=== PATIENT | male | born 1975 | race Caucasian/White ===

== ENCOUNTER 2016-04-01 20:00 | Emergency (ER) | payer OTHER, MEDICAID ==
[~2016-04-01] VITALS: Ht 195.6 cm; Wt 104.3 kg
[2016-04-01 21:18] LABS: Basophils # (auto) 0.1 uL; Eosinophils # (auto) 0.6 uL; Eosinophils % (auto) 6.7 % (0.0-7.0); Hematocrit 45.3 % (41.0-53.0); Hemoglobin 15.1 g/dL (13.5-17.5); Lymphocytes # (auto) 2.5 uL; Lymphocytes % (auto) 28.8 % (10.0-50.0); Mean Corpuscular Hemoglobin 28.7 pg (28.0-32.0); Mean Corpuscular Hgb Conc. 33.4 g/dL (32.0-36.0); Mean Corpuscular Volume 85.9 fL (80.0-100.0); Mean Platelet Volume 8.1 fL (7.4-10.4); Monocytes # (auto) 0.8 uL; Monocytes % (auto) 9.2 % (0.0-12.0); Neutrophils # (auto) 4.7 uL; Neutrophils % (auto) 54.3 % (37.0-80.0); Platelet Count (auto) 327 10^3/uL (140-450); Red Cell Distribution Width 13.7 % (11.6-16.0); White Blood Cell 8.7 10^3/uL (4.4-10.8)
[2016-04-01 21:38] LABS: Urine Bilirubin Negative (Negative); Urine Blood Negative /uL (Negative); Urine Color Yellow (Yellow); Urine Glucose Normal (Normal); Urine Ketone Negative (Negative); Urine Mucus FEW (None Seen); Urine Nitrite Negative (Negative); Urine RBC <1 /hpf (0 - 3); Urine Squamous Epithelial Cell FEW /hpf (<5)
[2016-04-01 21:41] LABS: Albumin 4.1 g/dL (3.4-5.0); BUN/Creatinine Ratio 12.8; Calcium 9.4 mg/dL (8.5-10.1); Potassium 4.1 mmol/L (3.5-5.1)
[2016-04-01 21:51] LABS: Bilirubin, Total 1.1 mg/dL (0.2-1.0); Total Protein 7.8 g/dL (6.4-8.2)
[2016-04-01 22:38] VITALS: BP 113/86
== END 2016-04-02 00:45 | disposition home or self-care (01) ==
LOC: ER 20:07
DX: R53.83 Other fatigue (principal); R53.1 Weakness; Z88.0 Allergy status to penicillin
CPT/HCPCS: 36415; 71020; 80053; 81001; 85025; 87400

== ENCOUNTER 2016-04-19 21:36 | Emergency (ER) | payer MEDICAID, OTHER ==
[~2016-04-19] VITALS: Ht 195.6 cm; Wt 104.3 kg
[2016-04-20 00:30] VITALS: BP 118/76
== END 2016-04-20 01:13 | disposition home or self-care (01) ==
LOC: ER 21:50
DX: S20.212A Contusion of left front wall of thorax, initial encounter (principal); Z88.0 Allergy status to penicillin; X58.XXXA Exposure to other specified factors, initial encounter; Y93.89 Activity, other specified; Y99.8 Other external cause status; Y92.89 Other specified places as the place of occurrence of the external cause
CPT/HCPCS: 71101

== ENCOUNTER 2016-04-25 23:11 | Emergency (ER) | payer MEDICAID ==
[~2016-04-25] VITALS: Ht 195.6 cm; Wt 104.3 kg
[2016-04-25 23:30] VITALS: BP 116/68
== END 2016-04-26 02:01 | disposition home or self-care (01) ==
LOC: ER 23:16
DX: S20.212A Contusion of left front wall of thorax, initial encounter (principal); Z88.0 Allergy status to penicillin; W19.XXXA Unspecified fall, initial encounter; Y93.01 Activity, walking, marching and hiking; Y99.8 Other external cause status; Y92.89 Other specified places as the place of occurrence of the external cause
CPT/HCPCS: 71250

== ENCOUNTER 2016-12-26 12:56 | Emergency (ER) | payer OTHER, MEDICAID ==
[~2016-12-26] VITALS: Ht 195.6 cm; Wt 99.8 kg
[2016-12-26 14:47] LABS: Basophils # (auto) 0.1 uL; Basophils % (auto) 1.4 % (0.0-2.0); Eosinophils # (auto) 0.6 uL; Eosinophils % (auto) 8.6 % (0.0-7.0); Hemoglobin 15.5 g/dL (13.5-17.5); Lymphocytes % (auto) 26.4 % (10.0-50.0); Mean Corpuscular Hemoglobin 29.4 pg (28.0-32.0); Mean Corpuscular Hgb Conc. 33.6 g/dL (32.0-36.0); Mean Corpuscular Volume 87.6 fL (80.0-100.0); Mean Platelet Volume 8.3 fL (6.9-10.8); Monocytes # (auto) 0.5 uL; Monocytes % (auto) 6.7 % (0.0-12.0); Neutrophils # (auto) 4.3 uL; Neutrophils % (auto) 56.9 % (37.0-80.0); Nucleated Red Blood Cells % 0.1 %; Platelet Count (auto) 279 10^3/uL (140-450); Red Cell Distribution Width 13.1 % (11.8-14.3); White Blood Cell 7.5 10^3/uL (4.4-10.8)
[2016-12-26 14:58] LABS: Albumin 4.1 g/dL (3.4-5.0); BUN/Creatinine Ratio 14.3; Calcium 8.8 mg/dL (8.5-10.1); Potassium 4.6 mmol/L (3.5-5.1)
[2016-12-26 15:01] LABS: Bilirubin, Total 1.4 mg/dL (0.2-1.0); Total Protein 7.2 g/dL (6.4-8.2)
[2016-12-26 15:39] VITALS: BP 112/73
== END 2016-12-26 18:47 | disposition left against medical advice (07) ==
LOC: ER 12:56
DX: R10.30 Lower abdominal pain, unspecified (principal); Z53.21 Procedure and treatment not carried out due to patient leaving prior to being seen by health care provider
CPT/HCPCS: 36415; 80053; 85025; 93005

== ENCOUNTER 2017-08-24 12:25 | Observation (INO) | payer OTHER, MEDICAID ==
[~2017-08-24] VITALS: Ht 195.6 cm; Wt 104.3 kg
[2017-08-24 13:45] LABS: Basophils # (auto) 0.1 uL; Basophils % (auto) 2.1 % (0.0-2.0); Eosinophils # (auto) 0.5 uL; Eosinophils % (auto) 7.7 % (0.0-7.0); Hematocrit 42.1 % (41.0-53.0); Hemoglobin 14.3 g/dL (13.5-17.5); Lymphocytes % (auto) 33.8 % (10.0-50.0); Mean Corpuscular Hemoglobin 29.5 pg (28.0-32.0); Mean Corpuscular Volume 86.8 fL (80.0-100.0); Monocytes # (auto) 0.6 uL; Monocytes % (auto) 9.4 % (0.0-12.0); Neutrophils # (auto) 2.8 uL; Nucleated Red Blood Cells % 0.1 %; Platelet Count (auto) 226 10^3/uL (140-450); Red Blood Cells 4.86 10^6/uL (4.5-5.90); Red Cell Distribution Width 12.9 % (11.8-14.3); White Blood Cell 5.9 10^3/uL (4.4-10.8)
[2017-08-24 14:01] LABS: Albumin 4.1 g/dL (3.4-5.0); BUN/Creatinine Ratio 17.6; Bilirubin, Total 1.5 mg/dL (0.2-1.0); Calcium 8.9 mg/dL (8.5-10.1); Potassium 4.4 mmol/L (3.5-5.1); Total Protein 7.5 g/dL (6.4-8.2)
[2017-08-24] MEDS ORDERED: ASPirin 81 mg TAB PO ONE (17:45)
[2017-08-24 18:40] LABS: Magnesium 2.3 mg/dL (1.6-2.6)
[2017-08-24 18:43] LABS: INR 0.95 (0.9-1.15); Partial Thromboplastin Time 27.6 sec (23.78-33.04); Prothrombin Time 10.2 sec (9.27-12.13)
[2017-08-24 20:15] LABS: Urine Bacteria NONE SEEN /hpf (None Seen); Urine Blood Negative /uL (Negative); Urine Specific Gravity 1.015 (1.001-1.035); Urine WBC 1 /hpf (0 - 3)
[2017-08-24 22:30] VITALS: BP 130/80
== END 2017-08-24 22:42 | disposition home or self-care (01) | DRG 313 ==
LOC: ER 12:25 → OVERFLOW 12:26 → ER 22:42
PROVIDERS: ADMIT Family Medicine; ATTEND Family Medicine
DX: R07.89 Other chest pain (principal); F32.9 Major depressive disorder, single episode, unspecified
CPT/HCPCS: 36415; 71046; 80053; 81001; 83735; 84443; 84484; 85025; 85379; 85610; 85730; 93005; 99285; G0378

== ENCOUNTER 2018-02-08 23:03 | Emergency (ER) | payer OTHER, MEDICAID ==
[~2018-02-08] VITALS: Ht 182.9 cm; Wt 93.0 kg
[2018-02-08 23:43] LABS: Basophils # (auto) 0.1 uL; Basophils % (auto) 1.4 % (0.0-2.0); Eosinophils # (auto) 0.6 uL; Eosinophils % (auto) 8.9 % (0.0-7.0); Hematocrit 42.8 % (41.0-53.0); Hemoglobin 14.3 g/dL (13.5-17.5); Lymphocytes # (auto) 2.8 uL; Lymphocytes % (auto) 40.6 % (10.0-50.0); Mean Corpuscular Hemoglobin 29.6 pg (28.0-32.0); Mean Corpuscular Hgb Conc. 33.5 g/dL (32.0-36.0); Mean Corpuscular Volume 88.5 fL (80.0-100.0); Monocytes # (auto) 0.6 uL; Monocytes % (auto) 8.4 % (0.0-12.0); Neutrophils # (auto) 2.8 uL; Neutrophils % (auto) 40.7 % (37.0-80.0); Nucleated Red Blood Cells % 0.1 %; Platelet Count (auto) 273 10^3/uL (140-450); Red Blood Cells 4.83 10^6/uL (4.5-5.90)
[2018-02-08] MEDS ORDERED: ONDANSETRON HCL 4 MG/2 ML VIAL IV ONE (23:45)
[2018-02-08] MEDS ORDERED: MORPHINE SULFATE 4 MG/ML SYR/VIAL IV ONE (23:45)
[2018-02-08 23:52] LABS: Urine Bacteria NONE SEEN /hpf (None Seen); Urine Blood Negative /uL (Negative); Urine Mucus FEW (None Seen); Urine Specific Gravity 1.018 (1.001-1.035); Urine WBC <1 /hpf (0 - 3)
[2018-02-09] LABS: Albumin 4.1 g/dL (3.4-5.0); Amylase 70 U/L (25-115); Anion Gap 8 (5-15); Aspartate Aminotransferase 26 U/L (15-37); BUN/Creatinine Ratio 16.7; Blood Urea Nitrogen 15 mg/dL (7-18); Calcium 8.8 mg/dL (8.5-10.1); Carbon Dioxide 27 mmol/L (21-32); Chloride 103 mmol/L (98-107); GFR African American 120 mL/min; GFR Non-African American 99 mL/min; Glucose 104 mg/dL (74-106); Lipase 148 U/L (73-393); Potassium 4.1 mmol/L (3.5-5.1); Sodium 138 mmol/L (136-145)
[2018-02-09 00:03] LABS: Alanine Aminotransferase 23 U/L (16-61); Alkaline Phosphatase 70 U/L (45-117); Bilirubin, Total 0.9 mg/dL (0.2-1.0); Total Protein 7.5 g/dL (6.4-8.2)
[2018-02-09 01:43] VITALS: BP 111/82
== END 2018-02-09 01:48 | disposition home or self-care (01) ==
LOC: ER 23:14 → EDBD 23:14 → ER 02-09 01:48
DX: I88.0 Nonspecific mesenteric lymphadenitis (principal); Z88.0 Allergy status to penicillin
CPT/HCPCS: 36415; 74176; 80053; 81001; 82150; 83690; 85025; 96374; 96375; 99284; J2270; J2405

== ENCOUNTER 2018-10-11 16:26 | Emergency (ER) | payer OTHER, MEDICAID ==
[~2018-10-11] VITALS: Ht 195.6 cm; Wt 92.5 kg
[2018-10-11 17:12] VITALS: BP 11/73
[2018-10-11] MEDS ORDERED: KETOROLAC TROMETH 60MG/2ML VIAL IM ONE (17:45)
[2018-10-11] MEDS ORDERED: METHOCARBAMOL 500 MG TAB PO ONE (17:45)
== END 2018-10-11 18:07 | disposition home or self-care (01) ==
LOC: ER 16:27
DX: S39.012A Strain of muscle, fascia and tendon of lower back, initial encounter (principal); M51.36 Other intervertebral disc degeneration, lumbar region; Z88.0 Allergy status to penicillin; X50.1XXA Overexertion from prolonged static or awkward postures, initial encounter; Y93.89 Activity, other specified; Y99.8 Other external cause status; Y92.89 Other specified places as the place of occurrence of the external cause
CPT/HCPCS: 72100; 96372; 99283; J1885

== ENCOUNTER 2018-11-05 13:30 | Emergency (ER) | payer OTHER, MEDICAID ==
[~2018-11-05] VITALS: Ht 195.6 cm; Wt 95.3 kg
[2018-11-05 15:13] VITALS: BP 120/78
== END 2018-11-05 16:03 | disposition home or self-care (01) ==
LOC: ER 13:30
DX: S80.12XA Contusion of left lower leg, initial encounter (principal); Z88.0 Allergy status to penicillin; X58.XXXA Exposure to other specified factors, initial encounter; Y93.89 Activity, other specified; Y92.89 Other specified places as the place of occurrence of the external cause; Y99.8 Other external cause status
CPT/HCPCS: 73590

== ENCOUNTER 2018-11-10 10:05 | Emergency (ER) | payer OTHER, MEDICAID ==
[~2018-11-10] VITALS: Ht 195.6 cm; Wt 95.3 kg
[2018-11-10 10:15] VITALS: BP 123/79
[2018-11-10] MEDS ORDERED: KETOROLAC TROMETH 60MG/2ML VIAL IM ONE (13:00)
== END 2018-11-10 13:15 | disposition home or self-care (01) ==
LOC: ER 10:05
DX: S93.402A Sprain of unspecified ligament of left ankle, initial encounter (principal); W20.8XXA Other cause of strike by thrown, projected or falling object, initial encounter; Y93.89 Activity, other specified; Y92.89 Other specified places as the place of occurrence of the external cause; Y99.8 Other external cause status
CPT/HCPCS: 73610; 96372; 99283; J1885

== ENCOUNTER 2018-11-17 13:06 | Emergency (ER) | payer OTHER, MEDICAID ==
[~2018-11-17] VITALS: Ht 195.6 cm; Wt 95.3 kg
[2018-11-17 13:39] VITALS: BP 117/78
== END 2018-11-17 16:17 | disposition home or self-care (01) ==
LOC: ER 13:06
DX: S90.32XA Contusion of left foot, initial encounter (principal); Z88.0 Allergy status to penicillin; W20.8XXA Other cause of strike by thrown, projected or falling object, initial encounter; Y93.89 Activity, other specified; Y92.89 Other specified places as the place of occurrence of the external cause; Y99.8 Other external cause status
CPT/HCPCS: 73630

== ENCOUNTER 2019-04-16 10:57 | Emergency (ER) | payer OTHER, MEDICAID ==
[~2019-04-16] VITALS: Ht 195.6 cm; Wt 90.7 kg
[2019-04-16 11:29] LABS: Urine WBC None Seen /hpf (0 - 3)
[2019-04-16 11:34] LABS: Urine Bacteria NONE SEEN /hpf (None Seen); Urine Blood Negative /uL (Negative); Urine Specific Gravity 1.012 (1.001-1.035)
[2019-04-16 11:34] LABS: Basophils # (auto) 0.1 uL; Basophils % (auto) 1.2 % (0.0-2.0); Eosinophils # (auto) 0.3 uL; Eosinophils % (auto) 6.1 % (0.0-7.0); Hematocrit 43.3 % (41.0-53.0); Hemoglobin 14.6 g/dL (13.5-17.5); Lymphocytes # (auto) 1.7 uL; Lymphocytes % (auto) 32.1 % (10.0-50.0); Mean Corpuscular Hemoglobin 29.5 pg (28.0-32.0); Mean Corpuscular Hgb Conc. 33.6 g/dL (32.0-36.0); Mean Corpuscular Volume 87.8 fL (80.0-100.0); Monocytes # (auto) 0.4 uL; Monocytes % (auto) 7.3 % (0.0-12.0); Neutrophils # (auto) 2.8 uL; Neutrophils % (auto) 53.3 % (37.0-80.0); Nucleated Red Blood Cells % 0.1 %; Platelet Count (auto) 231 10^3/uL (140-450); Red Blood Cells 4.94 10^6/uL (4.5-5.90); Red Cell Distribution Width 13.4 % (11.8-14.3); White Blood Cell 5.3 10^3/uL (4.4-10.8)
[2019-04-16 11:50] LABS: Calcium 8.7 mg/dL (8.5-10.1)
[2019-04-16 11:54] LABS: BUN/Creatinine Ratio 14.5; Bilirubin, Total 1.6 mg/dL (0.2-1.0); Total Protein 7.3 g/dL (6.4-8.2)
[2019-04-16] MEDS ORDERED: KETOROLAC TROMETH 60MG/2ML VIAL IM ONE (12:00)
[2019-04-16 12:13] VITALS: BP 132/87
== END 2019-04-16 13:39 | disposition home or self-care (01) ==
LOC: ER 10:57
DX: S39.011A Strain of muscle, fascia and tendon of abdomen, initial encounter (principal); R19.7 Diarrhea, unspecified; R11.0 Nausea; Z88.0 Allergy status to penicillin; X58.XXXA Exposure to other specified factors, initial encounter; Y93.89 Activity, other specified; Y99.8 Other external cause status; Y92.89 Other specified places as the place of occurrence of the external cause
CPT/HCPCS: 36415; 71046; 74176; 80053; 81001; 83690; 85025; 96372; 99285; J1885

== ENCOUNTER 2019-10-24 13:45 | Emergency (ER) | payer OTHER, MEDICAID ==
[~2019-10-24] VITALS: Ht 195.6 cm; Wt 95.3 kg
[2019-10-24 14:01] VITALS: BP 137/83
[2019-10-24] MEDS ORDERED: FLUORESCEIN SOD 1 MG TEST STRIP EACHEYE ONE (16:15)
[2019-10-24] MEDS ORDERED: TETRACAINE HCL 0.5% OPTH(EYE) SOLN 4ML LEFTEYE ONE (16:15)
[2019-10-24] MEDS ORDERED: FLUORESCEIN SOD 1 MG TEST STRIP ONE (16:27)
[2019-10-24] MEDS ORDERED: FLUORESCEIN SOD 1 MG TEST STRIP LEFTEYE ONE (16:30)
== END 2019-10-24 16:38 | disposition home or self-care (01) ==
LOC: ER 13:45
DX: S05.02XA Injury of conjunctiva and corneal abrasion without foreign body, left eye, initial encounter (principal); Z88.0 Allergy status to penicillin; X58.XXXA Exposure to other specified factors, initial encounter; Y93.89 Activity, other specified; Y92.89 Other specified places as the place of occurrence of the external cause; Y99.8 Other external cause status

== ENCOUNTER 2020-01-07 12:05 | Emergency (ER) | payer OTHER, MEDICAID ==
[~2020-01-07] VITALS: Ht 195.6 cm; Wt 95.3 kg
[2020-01-07 12:49] VITALS: BP 118/75
[2020-01-07] MEDS ORDERED: KETOROLAC TROMETH 60MG/2ML VIAL IM ONE (13:30)
== END 2020-01-07 14:25 | disposition home or self-care (01) ==
LOC: ER 12:05
DX: M54.16 Radiculopathy, lumbar region (principal); Z88.0 Allergy status to penicillin
CPT/HCPCS: 72100; 96372; 99283; J1885

== ENCOUNTER 2021-04-22 16:16 | Emergency (ER) | payer OTHER, MEDICAID ==
[~2021-04-22] VITALS: Ht 195.6 cm; Wt 93.4 kg
[2021-04-22] MEDS ORDERED: SODIUM CHLORIDE 0.9% 1,000 ML IVB ONE (16:45)
[2021-04-22] MEDS ORDERED: KETOROLAC TROMETH 30 MG/ML 1ML VIAL IV ONE (16:45)
[2021-04-22 18:12] LABS: Basophils # (auto) 0.1 10 ^3/uL (0-0.2); Eosinophils # (auto) 0.2 10 ^3/uL (0-0.8); Eosinophils % (auto) 2.6 % (0.0-7.0); Hematocrit 37.9 % (41.0-53.0); Lymphocytes # (auto) 2.1 10 ^3/uL (0.4-5.4); Lymphocytes % (auto) 27.6 % (10.0-50.0); Mean Corpuscular Hemoglobin 29.5 pg (28.0-32.0); Mean Corpuscular Hgb Conc. 34.3 g/dL (32.0-36.0); Mean Corpuscular Volume 85.9 fL (80.0-100.0); Monocytes # (auto) 0.5 10 ^3/uL (0-1.3); Monocytes % (auto) 7.2 % (0.0-12.0); Neutrophils # (auto) 4.6 10 ^3/uL (1.6-8.6); Neutrophils % (auto) 61.6 % (37.0-80.0); Red Blood Cells 4.41 10^6/uL (4.5-5.90); Red Cell Distribution Width 13.1 % (11.8-14.3); White Blood Cell 7.5 10^3/uL (4.4-10.8)
[2021-04-22 18:29] LABS: Albumin 4.1 g/dL (3.4-5.0); Calcium 8.7 mg/dL (8.5-10.1); Potassium 4.1 mmol/L (3.5-5.1)
[2021-04-22 18:42] LABS: BUN/Creatinine Ratio 13.2
[2021-04-22] MEDS ORDERED: TRAM-297 PO (20:59)
[2021-04-22 22:09] LABS: Urine Bacteria NONE SEEN /hpf (None Seen); Urine Blood Negative /uL (Negative); Urine Hyaline Cast FEW /lpf (0 - 2); Urine Mucus FEW (None Seen); Urine Specific Gravity 1.013 (1.001-1.035); Urine WBC <1 /hpf (0 - 3)
[2021-04-22 23:25] VITALS: BP 136/79
== END 2021-04-22 23:33 | disposition home or self-care (01) ==
LOC: ER 16:22
DX: R10.9 Unspecified abdominal pain (principal); M79.18 Myalgia, other site; Z88.0 Allergy status to penicillin
CPT/HCPCS: 36415; 74176; 80053; 81001; 85025; 96361; 96374; 99284; J1885; J7030

== ENCOUNTER 2024-08-24 15:05 | Inpatient (IN) | payer OTHER, MEDICAID ==
[~2024-08-24] VITALS: Ht 195.6 cm; Wt 100.8 kg
[~2024-08-24 15:05] MED LIST: HYDR-4798 PO; TRAM-297 PO
--- NOTE | 2024-08-24 15:28 | ED.PDOC ---
HPI Comments HPI: 48-year-old male presents to the emergency department with a chief complaint of chest pain onset 3 days. For the past 3 days, patient has been experiencing chest pain, palpitations, shortness of breath, dizziness, noticed symptoms worsen with laying down. No other symptoms or modifying factors present at this time. Patient did not take his metoprolol today. Patient is on nitroglycerin p.r.n.. Initial Vitals BP: 122/78 HR: 88 RR: 20 O2 Sat: 97% Past Medical history: depression, a-fib Past Surgical history: lens replacement Medications: metoprolol, Nitro, Omeprazole Social History: Denies Allergies: NKDA HPI: Poor Historian. REVIEW OF SYSTEMS: CONSTITUTIONAL: Denies acute: fever, diaphoresis, chills, HEAD: Denies acute: headache, photophobia Eyes: Denies acute: Double vision, vision loss, eye pain, eye discharge. EARS: Denies acute: tinnitus, hearing loss, ear discharge, ear pain, THROAT: Denies acute: sore throat, swelling, difficulty swallowing , pain with swallowing, change in voice. NECK: Denies acute: neck pain, neck swelling, stiff neck. HEART: Denies acute : LUNGS: Denies acute: wheezing, cough, hemoptysis ABDOMEN: Denies acute: abdominal pain, Nausea, Vomiting, diarrhea, melena , hematemesis, hematochezia SKIN: Denies acute: rash, redness, lesions, itchiness. EXTREMITIES: Denies acute: calf pain, numbness, tingling, weakness, denies pain in extremity. Denies acute: Low back pain. Neuro: Denies acute: focal neurological deficit, motor or sensory focal neurological deficit, tremors, seizure like activity, confusion, dizziness, change in mental status, loss of bowel or bladder function, cauda equina like symptoms. : Denies acute: dysuria, hematuria, flank pain, increase in urinary frequency. PSYCH: Denies acute: hallucination, suicidal ideation, homicidal ideation. PHYSICAL EXAM: General: ----[id number]----acute distress, awake and alert. Head: normocephalic, atraumatic. Neck: supple, trachea is midline, no swelling. Throat: Normal phonation. Eyes:, no erythema, no purulent discharge, no proptosis, no icterus. Heart: regular rate, regular rhythm, no significant murmur appreciated. Lungs: no apparent respiratory distress, Able to speak in full sentences. No wheezing, no rhonchi, no crackles. No stridors Clear to auscultation bilaterally. Abdomen: non tender to palpation, non distended, soft, no guarding, no rebound, + bowel sounds. Neuro: Awake, Alert, oriented to name, self, situation, follows commands GCS=15. Speech is normal. Skin: no petechia, no purpura, no cyanosis, non-pale, not jaundice. Lower extremities: --no - Pitting edema no deformity, no focal swelling, no calf TTP. Makes eye contact. moves all four extremities. Face: no apparent facial droop. Ambulating in the ED independently. ED COURSE: DISCLAIMER: This medical document was created using an electronic medical record system with voice recognition software and computerized dictation system. Although this document has been carefully reviewed, there might still be some phonetic and typographical errors. Occasional wrong-word or "sound-alike" substitutions may have occurred due to the inherent limitations of voice recognition software. These areas are purely typographical due to imperfections of the software programs and do not reflect any compromise in the patient's medical care. Please read the chart carefully and recognize, using context, where these substitutions have occurred. Chief Complaint: Chest Pain Time Seen by MD: 15:15 Primary Care Provider: UNKN Reviewed Notes: Medications, Allergies Allergies: Coded Allergies: Penicillins (Verified Allergy, Unknown, 04/16/19) Home Meds Active Scripts Hydrocodone-Acetaminophen (Hydrocodone Bitartrate/AC 10-325 mg) 1 Tab Tab, 1 TAB PO Q6HPRN PRN, #30 TAB Prov:LAMINE HOSKINS DO 11/01/21 Tramadol Hcl (Ultram) 50 Mg Tab, 1 TAB PO Q6HR, #30 TAB Prov:ARNOLDO ROD MD 04/22/21 Information Source: Patient Mode of Arrival: Ambulatory Severity: Moderate Timing: Days Duration: Since onset Prehospital treatment: None Location: Chest (L) Radiation: No Radiation Quality: Pressure Onset: At Rest Cardiac Risk Factors: None PE Risk Factors: None History of: None Modifying Factors: Nothing Associated Signs and Symptoms: SOB, Palpitations Past Medical History PAST MEDICAL HISTORY: AFIB, Depression Surgical History (Other): lens replacement Family History Family History: No family hx of Cancer, No family hx of DM, No family hx of Heart etelvina, No family hx of HTN, No family hx ofKidney etelvina, No family hx of Liver etelvina, No family hx of Lung etelvina, No family hx of Stroke Social History Smoker: Non-Smoker Alcohol: Occasionally Drugs: Denies Drug Use Lives In: Home Was a procedure done? Was a procedure done?: No CP Differential Dx Differential Diagnosis: N/A Differential Diagnosis: Other (Ddx include but not limitied to gastritis, musculoskeletal pain, radiculopathy, atypical chest pain, dissection, aneurysm, ACS, unstable angina, hiatal hernia, GERD, anxiety, costochondritis, PE, pneumothroax, neoplasm, cardiac ischemia, drug abuse, anemia.) X-Ray, Labs, Meds, VS Vital Signs Date Time Temp Pulse Resp B/P (MAP) Pulse Ox O2 Delivery O2 Flow Rate FiO2 08/24/24 19:38 98.8 54 18 123/74 (90) 100 98.8 08/24/24 18:51 98.8 55 18 130/84 (99) 98 98.8 08/24/24 18:51 130/84 08/24/24 18:15 105/68 08/24/24 18:06 98.6 71 16 105/68 (80) 97 98.6 08/24/24 18:06 71 16 97 Room Air* 0 21 08/24/24 18:05 78 08/24/24 16:08 69 08/24/24 15:48 98.6 88 20 127/75 (92) 97 98.6 08/24/24 15:12 90 Lab Test 08/24/24 18:53 08/24/24 18:35 08/24/24 17:20 08/24/24 15:19 Range/Units Troponin I High Sensitivity 3 L < 3 L < 3 L </=54 ng/L Urine Color Yellow Yellow Urine Clarity Clear Clear Urine pH 5.5 5.0-9.0 Urine Specific [place] 1.023 1.001-1.035 Urine Protein Negative Negative Urine Ketones Negative Negative Urine Blood Negative Negative /uL Urine Nitrite Negative Negative Urine Bilirubin Negative Negative Urine Urobilinogen Normal Negative mg/dL Urine Leukocyte Esterase Negative Negative /uL Urine RBC 1 0 - 3 /hpf Urine Microscopic WBC 2 0-3 /HPF Urine Squamous Epithelial Cells Few <5 /hpf Urine Bacteria None seen None Seen /hpf Urine Hyaline Casts Mod 0 - 2 /lpf Urine Mucus Few None Seen Urine Glucose Normal Normal mg/dL Lactic Acid Level 1.1 2.6 *H 0.4-2.0 mmol/L White Blood Count 7.8 4.4-10.8 10^3/uL Red Blood Count 4.88 4.5-5.90 10^6/uL Hemoglobin 14.6 13.5-17.5 g/dL Hematocrit 42.0 41.0-53.0 % Mean Corpuscular Volume 86.1 80.0-100.0 fL Mean Corpuscular Hemoglobin 29.8 28.0-32.0 pg Mean Corpuscular Hemoglobin Concent 34.6 32.0-36.0 g/dL Red Cell Distribution Width 12.7 11.8-14.3 % Platelet Count 249 140-450 10^3/uL Mean Platelet Volume 8.1 6.9-10.8 fL Neutrophils (%) (Auto) 62.0 37.0-80.0 % Lymphocytes (%) (Auto) 27.1 10.0-50.0 % Monocytes (%) (Auto) 6.7 0.0-12.0 % Eosinophils (%) (Auto) 3.4 0.0-7.0 % Basophils (%) (Auto) 0.8 0.0-2.0 % Neutrophils # (Auto) 4.8 1.6-8.6 10 ^3/uL Lymphocytes # (Auto) 2.1 0.4-5.4 10 ^3/uL Monocytes # (Auto) 0.5 0-1.3 10 ^3/uL Eosinophils # (Auto) 0.3 0-0.8 10 ^3/uL Basophils # (Auto) 0.1 0-0.2 10 ^3/uL Nucleated Red Blood Cells 0.0 % Sodium Level 142 136-145 mmol/L Potassium Level 3.6 3.5-5.1 mmol/L Chloride Level 104 98-107 mmol/L Carbon Dioxide Level 26 20-31 mmol/L Anion Gap 12 5-15 Blood Urea Nitrogen 12 9-23 mg/dL Creatinine 0.97 0.700-1.30 mg/dL Glomerular Filtration Rate Calc 97 >90 mL/min BUN/Creatinine Ratio 12.4 10.0-20.0 Serum Glucose 119 H 74-106 mg/dL Calcium Level 9.6 8.7-10.4 mg/dL Magnesium Level 1.9 1.6-2.6 mg/dL Total Bilirubin 1.5 H 0.2-1.0 mg/dL Aspartate Amino Transferase (AST) 28 <34 U/L Alanine Aminotransferase (ALT) 21 7-40 U/L Alkaline Phosphatase 56 46-116 U/L B-Type Natriuretic Peptide 55.92 0-100 pg/mL Total Protein 7.2 5.7-8.2 g/dL Albumin 4.8 3.2-4.8 g/dL Thyroid Stimulating Hormone (TSH) 1.53 0.55-4.78 uIU/mL Current Medications Medications (Trade) Dose Ordered Sig/Meli Route Start Time Stop Time Status Last Admin Sodium Chloride 1,000 ml @ 1,000 mls/hr Q1H ONCE IV 08/24/24 15:30 08/24/24 16:29 DC 08/24/24 18:25 Aspirin (Ecotrin Enteric Coated Tablet) 325 mg ONCE ONCE PO 08/24/24 15:30 08/24/24 15:31 DC 08/24/24 18:14 Nitroglycerin (Ntrostat Sublingual) 0.4 mg ONCE ONCE SL 08/24/24 15:30 08/24/24 15:31 DC 08/24/24 18:15 Sodium Chloride 1,000 ml @ 1,000 mls/hr Q1H ONCE IV 08/24/24 16:00 08/24/24 16:59 DC 08/24/24 18:33 [place] [id number] Ph: [phone] DIAGNOSTIC IMAGING Diagnostic Imaging Report : [id number] Signed PATIENT: GE BAH ACCT: [id number] UNIT: [id number] : 1975 LOC: ER ROOM / BED: / AGE / SEX: 48 / M ADM STATUS: REG ER SERVICE 6030 ORDERING PHYSICIAN: SHARA HERNANDEZ DO PROCEDURE(s): CXRP - CHEST PORTABLE REASON: cp/sob/dizzy/palpitations ORDER NUMBER(s): [id number], ACCESSION NUMBER(s): [id number] EXAM: XY CHEST PORTABLE HISTORY: cp/sob/dizzy/palpitations COMPARISON: None TECHNIQUE: Portable AP view of the chest was performed. FINDINGS: No pneumothorax, consolidative infiltrates, or pulmonary edema. The heart is not enlarged. There is mild thoracic spondylosis and scoliosis. IMPRESSION: No acute intrathoracic process. ATED BY: JANELL SCHAEFER MD DICTATED DATE/TIME: 08/24/24 154 SIGNED BY: JANELL SCHAEFER MD SIGNED DATE/TIME: 08/24/241545 CC: Time of 1ST Reevaluation: 15:45 Reevaluation 1ST: Unchanged Patient Education/Counseling: Diagnosis, Treatment Family Education/Counseling: No Family Present Comments Patient presented with the above HPI.--chest pain/shortness of breath/palpitation----workup was initiated. patient was found with the above mentioned diagnosis. the following medications were ordered: please refer to order lists of meds and tests obtained by myself Dr. Hernandez. Patient ED course and VS have been stabilized. Patient has been reassessed in the ED and remained in a stable condition. Pertinent incidental findings were discussed with the patient and/or family. Patient/family voices understanding and is agreeable with plan. Patient has been observed in the ED adequate length of time to insure improvement/stability. Escalation of care considered: Consideration of escalation to observation or admission Patient was ADMITTED to the medicine team for further evaluation and treatment of their presentation. All the reports of any imaging studies that were ordered by myself were reviewed by myself. Departure 1 Departure Time of Disposition: 15:33 Impression: Primary Impression: Chest pain Additional Impressions: Atrial fibrillation with RVR Dyspnea Disposition: ADMITTED INPATIENT Admit to: [facility] Condition: Guarded Discharged With: Self Critical Care Note Critical Care Time?: No Heart Score Heart Score: Heart Score Response (Comments) Value History Moderate Suspicious 1 EKG Normal 0 Age 45-64 1 Risk Factors >3 or Hx ASHD 2 Troponin Normal limit 0 Total 4 I personally scribed for SHARA HERNANDEZ DO ([email or web address]) on 08/24/24 at 15:27. Electronically submitted by Afua Rivera ([email or web address]). I personally scribed for SHARA HERNANDEZ DO ([email or web address]) on 08/24/24 at 16:14. Electronically submitted by Afua Rivera ([email or web address]). I personally scribed for SHARA HERNANDEZ DO ([email or web address]) on 08/24/24 at 16:15. Electronically submitted by Afua Rivera ([email or web address]). SHARA HERNANDEZ DO Aug 24, 2024 15:27
[2024-08-24 15:39] LABS: Basophils # (auto) 0.1 10 ^3/uL (0-0.2); Basophils % (auto) 0.8 % (0.0-2.0); Eosinophils # (auto) 0.3 10 ^3/uL (0-0.8); Eosinophils % (auto) 3.4 % (0.0-7.0); Hemoglobin 14.6 g/dL (13.5-17.5); Lymphocytes # (auto) 2.1 10 ^3/uL (0.4-5.4); Lymphocytes % (auto) 27.1 % (10.0-50.0); Mean Corpuscular Hemoglobin 29.8 pg (28.0-32.0); Mean Corpuscular Hgb Conc. 34.6 g/dL (32.0-36.0); Mean Corpuscular Volume 86.1 fL (80.0-100.0); Monocytes # (auto) 0.5 10 ^3/uL (0-1.3); Monocytes % (auto) 6.7 % (0.0-12.0); Neutrophils # (auto) 4.8 10 ^3/uL (1.6-8.6); Platelet Count (auto) 249 10^3/uL (140-450); Red Blood Cells 4.88 10^6/uL (4.5-5.90); Red Cell Distribution Width 12.7 % (11.8-14.3); White Blood Cell 7.8 10^3/uL (4.4-10.8)
--- NOTE | 2024-08-24 15:49 | DVH ---
EXAM: XY CHEST PORTABLE HISTORY: cp/sob/dizzy/palpitations COMPARISON: None TECHNIQUE: Portable AP view of the chest was performed. FINDINGS: No pneumothorax, consolidative infiltrates, or pulmonary edema. The heart is not enlarged. There is m ild thoracic spondylosis and scoliosis. IMPRESSION: No acute intrathoracic process.
[2024-08-24 15:52] LABS: Alanine Aminotransferase 21 U/L (7-40); Albumin 4.8 g/dL (3.2-4.8); Alkaline Phosphatase 56 U/L (46-116); Anion Gap 12 (5-15); Aspartate Aminotransferase 28 U/L (<34); BUN/Creatinine Ratio 12.4 (10.0-20.0); Blood Urea Nitrogen 12 mg/dL (9-23); Calcium 9.6 mg/dL (8.7-10.4); Carbon Dioxide 26 mmol/L (20-31); Chloride 104 mmol/L (98-107); Glucose 119 mg/dL (74-106); Magnesium 1.9 mg/dL (1.6-2.6); Potassium 3.6 mmol/L (3.5-5.1); Sodium 142 mmol/L (136-145); Total Protein 7.2 g/dL (5.7-8.2)
[2024-08-24 15:54] LABS: Bilirubin, Total 1.5 mg/dL (0.2-1.0)
[2024-08-24 15:58] LABS: Lactic Acid w/Reflex 2.6 mmol/L (0.4-2.0)
[2024-08-24 18:06] VITALS: PULSE 71; RESP 16; O2SAT 97
[2024-08-24] MEDS: ASPirin-EC 325mg tab PO ONE (18:14)
[2024-08-24] MEDS: NITROGLYCERIN 0.4 MG SL TAB SL ONE (18:15)
[2024-08-24] MEDS: SODIUM CHLORIDE 0.9% 1,000 ML IV ONE ×2 (18:25→18:33)
--- NOTE | 2024-08-24 19:18 | ECG ---
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
[2024-08-24 19:44] LABS: Urine Bacteria None Seen /hpf (None Seen)
[2024-08-24 19:55] LABS: Urine Blood Negative /uL (Negative); Urine Clarity Clear (Clear); Urine Color Yellow (Yellow); Urine Hyaline Cast MOD /lpf (0 - 2); Urine Mucus FEW (None Seen); Urine Protein, UAD Negative (Negative); Urine Specific Gravity 1.023 (1.001-1.035); Urine Squamous Epithelial Cell FEW /hpf (<5); Urine Urobilinogen Normal (Negative); Urine WBC 2 /HPF (0-3); Urine pH 5.5 (5.0-9.0)
[2024-08-24] MEDS ORDERED: MORPHINE SULFATE INJ 2 MG/ml SYRG IV PRN (23:30)
[2024-08-24] MEDS ORDERED: NITROGLYCERIN 0.4 MG SL TAB SL PRN (23:30)
[2024-08-25] MEDS ORDERED: NITROGLYCERIN 0.4 MG SL TAB SL PRN (03:15)
[2024-08-25] MEDS: SODIUM CHLORIDE 0.9% 1,000 ML IV ONE (03:38)
--- NOTE | 2024-08-25 04:19 | DVH ---
EXAM: CT HEAD WITHOUT CONTRAST INDICATION: r/o acute stroke TECHNIQUE: CT of the head without intravenous contrast. Radiation Dose : 1. Head: CT Dose: CTDI volume is 56.53 mGy. Dose-length product is 1114.07 mGy*cm The dose indicators for CT are the volume Computed Tomography (CT) Dose Index (CTDIvol) and the Dose Length Product (DLP), and are measured in units of mGy and mGy-cm, respectively. These indicators are not patient dose, but values generated from the CT scanner acquisition factors. The report includes radiation exposure data for exposures received during this examination. COMPARISON: None FINDINGS: There is no evidence of acute intracranial hemorrhage, extra-axial collection, mass effect, midline s hift, herniation or hydrocephalus. The ventricles, sulci and cisterns are age appropriate. The fleming-white differentiation is intact. Minor left maxillary mucosal sinus disease. The remaining visualized paranasal sinuses and mastoid a ir cells are clear. The surrounding soft tissues and osseous structures are unremarkable. IMPRESSION: 1. No acute intracranial abnormality. Radiation optimization: All CT scans at this facility use at least one of these dose optimization carisa hniques: automated exposure control mA and/or kV adjustment per patient size (includes targeted exam s where dose is matched to clinical indication) or iterative reconstruction.
[2024-08-25 04:27] LABS: Amphetamine Screen, Urine Neg (NEGATIVE); Barbiturate Scree,Urine Neg (NEGATIVE); Benzodiazephine Screen, Urine Neg (NEGATIVE); Cannabinoid Screen, Urine Neg (NEGATIVE); Cocaine Screen, Urine Neg (NEGATIVE); Opiate Scree,Urine Neg (NEGATIVE); Phencyclidine Screen, Urine Neg (NEGATIVE)
[2024-08-25 04:33] LABS: COVID19 ANTIGEN SOFIA FIA NEGATIVE (NEGATIVE)
[2024-08-25 04:34] LABS: Rapid Influenza A Negative (Negative); Rapid Influenza B Negative (Negative)
[2024-08-25 05:27] VITALS: BP 118/70; PULSE 54; PULSE 70; RESP 15; RESP 18; O2SAT 98; O2SAT 99
--- NOTE | 2024-08-25 06:27 | DVHHPRES ---
History of Present Illness Resident Creating Document: KIERANBOLARUDOLPHAIDEN RESIDENT History of Present Illness Patient is a 48-year-old male with a past medical history of paroxysmal atrial fibrillation, narcolepsy presented to the ED with a chief complaint of chest pain for the last 2 days. Patient reported substernal to left-sided chest pain with the associated numbness in his hands, palpitations on and off and also reported mild shortness of breath. Patient takes metoprolol succinate 25 mg daily for his atrial fibrillation but is not on any anticoagulation and follows up with primary artist blacksmith and EP artist blacksmith down the [place]. Patient reported he had a stress test about 2 years ago and never had a coronary angiogram done. Patient also reported a with generalized weakness with difficulty moving around and having dizziness, also reported blurred vision for a few minutes 2 days ago which resolved on its own. Past medical history as per HPI Past surgical history: Multiple orthopedic surgeries Social history: Patient denies smoking, alcohol, drug use Home medications: Metoprolol succinate 25 mg daily Review of Systems Review of Systems Patient seen and examined at the bedside Reports of feeling weak, reported chest pain 2/10, no shortness a breath No other acute complaints Allergies: Coded Allergies: Penicillins (Verified Allergy, Unknown, 04/16/19) Medications Current Medications Medications Dose Ordered Sig/Meli Route Start Time Stop Time Status Last Admin Dose Admin Nitroglycerin 0.4 mg Q5MINP PRN SL 08/25/24 03:15 Morphine Sulfate 2 mg Q30M PRN IV 08/25/24 03:15 Aspirin 81 mg DAILY PO 08/25/24 10:00 Exam Vital Signs Vital Signs Date Time Temp Pulse Resp B/P (MAP) Pulse Ox O2 Delivery O2 Flow Rate FiO2 08/25/24 04:00 45 08/25/24 04:00 17 104/53 (70) 98 08/25/24 03:03 98.0 98.0 08/25/24 03:00 Room Air* 0 21 Exam Gen - no pallor, no icterus, no cyanosis, no clubbing, no LAD, no edema . Skin - Patients skin is warm and dry. HEENT - normocephalic, atraumatic, moist mucous membranes. Neck - full ROM, no LAD, no JVD Pulmonary - B/L equal breath sounds, no crackles, no wheezing, no stridor. cardiovascular - regular S1,S2 heard, no added sounds, no murmurs heard. peripheral pulses normal radial 2+, pedal 2+. capillary refill normal <2 secs. GI - soft, nontender abdomen. no hepatospleenomegaly. Bowel sounds normoactive Neurological - Patient is A/O X 3 . Bilateral upper extremity strength 3/5, bilateral lower extremity strength 3/5, no facial droop, normal speech, no tremor, no sensory deficiets. Labs/Xrays Labs Test 08/25/24 03:55 08/24/24 18:53 08/24/24 18:35 08/24/24 17:20 Range/Units Influenza Type A Antigen Negative Negative Influenza Type B Antigen Negative Negative SARS-CoV-2 Antigen (Rapid) Negative NEGATIVE Troponin I High Sensitivity 3 L </=54 ng/L Urine Color Yellow Yellow Urine Clarity Clear Clear Urine pH 5.5 5.0-9.0 Urine Specific [place] 1.023 1.001-1.035 Urine Protein Negative Negative Urine Ketones Negative Negative Urine Blood Negative Negative /uL Urine Nitrite Negative Negative Urine Bilirubin Negative Negative Urine Urobilinogen Normal Negative mg/dL Urine Leukocyte Esterase Negative Negative /uL Urine RBC 1 0 - 3 /hpf Urine Microscopic WBC 2 0-3 /HPF Urine Squamous Epithelial Cells Few <5 /hpf Urine Bacteria None seen None Seen /hpf Urine Hyaline Casts Mod 0 - 2 /lpf Urine Mucus Few None Seen Urine Glucose Normal Normal mg/dL Urine Opiates Screen Neg NEGATIVE Urine Fentanyl Screen Neg NEGATIVE Urine Barbiturates Screen Neg NEGATIVE Urine Phencyclidine Screen Neg NEGATIVE Urine Amphetamines Screen Neg NEGATIVE Urine Benzodiazepines Screen Neg NEGATIVE Urine Cocaine Screen Neg NEGATIVE Urine Cannabinoids Screen Neg NEGATIVE Lactic Acid Level 1.1 0.4-2.0 mmol/L Test 08/24/24 15:19 Range/Units White Blood Count 7.8 4.4-10.8 10^3/uL Red Blood Count 4.88 4.5-5.90 10^6/uL Hemoglobin 14.6 13.5-17.5 g/dL Hematocrit 42.0 41.0-53.0 % Mean Corpuscular Volume 86.1 80.0-100.0 fL Mean Corpuscular Hemoglobin 29.8 28.0-32.0 pg Mean Corpuscular Hemoglobin Concent 34.6 32.0-36.0 g/dL Red Cell Distribution Width 12.7 11.8-14.3 % Platelet Count 249 140-450 10^3/uL Mean Platelet Volume 8.1 6.9-10.8 fL Neutrophils (%) (Auto) 62.0 37.0-80.0 % Lymphocytes (%) (Auto) 27.1 10.0-50.0 % Monocytes (%) (Auto) 6.7 0.0-12.0 % Eosinophils (%) (Auto) 3.4 0.0-7.0 % Basophils (%) (Auto) 0.8 0.0-2.0 % Neutrophils # (Auto) 4.8 1.6-8.6 10 ^3/uL Lymphocytes # (Auto) 2.1 0.4-5.4 10 ^3/uL Monocytes # (Auto) 0.5 0-1.3 10 ^3/uL Eosinophils # (Auto) 0.3 0-0.8 10 ^3/uL Basophils # (Auto) 0.1 0-0.2 10 ^3/uL Nucleated Red Blood Cells 0.0 % Sodium Level 142 136-145 mmol/L Potassium Level 3.6 3.5-5.1 mmol/L Chloride Level 104 98-107 mmol/L Carbon Dioxide Level 26 20-31 mmol/L Anion Gap 12 5-15 Blood Urea Nitrogen 12 9-23 mg/dL Creatinine 0.97 0.700-1.30 mg/dL Glomerular Filtration Rate Calc 97 >90 mL/min BUN/Creatinine Ratio 12.4 10.0-20.0 Serum Glucose 119 H 74-106 mg/dL Calcium Level 9.6 8.7-10.4 mg/dL Magnesium Level 1.9 1.6-2.6 mg/dL Total Bilirubin 1.5 H 0.2-1.0 mg/dL Aspartate Amino Transferase (AST) 28 <34 U/L Alanine Aminotransferase (ALT) 21 7-40 U/L Alkaline Phosphatase 56 46-116 U/L B-Type Natriuretic Peptide 55.92 0-100 pg/mL Total Protein 7.2 5.7-8.2 g/dL Albumin 4.8 3.2-4.8 g/dL Thyroid Stimulating Hormone (TSH) 1.53 0.55-4.78 uIU/mL Assessment/Plan Assessment/Plan Assessment Acute chest pain, rule out ACS paroxysmal atrial fibrillation Probable Tachy-rick syndrome Dehydration Lactic acidosis H/o Narcolepsy Generalized weakness Plan - [id number] Vasc score 0 point - ECG showing sinus rhythm with no acute ST segment or T-wave changes, troponin within normal limits - IV fluids - head CT shows no acute changes - chest x-ray shows no acute changes - on telemetry - on the tele monitor patient was seen to have heart rate fluctuate between 40s and 90s, may need evaluation for tachy-rick syndrome Goals of care discussed with the patient for over 23 minutes. Full code Time spent: 38 mins Plan discussed with Dr. Arnold Plan discussed with: Patient My Orders Orders - AKI ROMO Procedure Category Date Status Time Admit ADMIT 08/25/24 Transmitted 03:12 Nitroglycerin [facility] 08/25/24 In Process Sublingual (Ntrostat 03:15 Morphine Sulfate [facility] 08/25/24 In Process Injection 03:15 Oxygen By Nasal RT 08/25/24 Transmitted Cannula 03:12 Stat Ekg For Chest KATELIN 08/25/24 In Process Pain 03:12 Notify Of Changes [facility] 08/25/24 In Process From Base 03:12 Quill Cleaner For [facility] 08/25/24 In Process 24 Hours 03:12 Emergency Dysrhythmia [facility] 08/25/24 In Process Protocol 03:12 Rhythm Strips Once [facility] 08/25/24 In Process Every Shift 03:12 Echo 2d Mode Cardiac US 08/25/24 Logged DOP 03:[address] 08/25/24 Resulted 03:12 Carotid Duplx W Color US 08/25/24 Logged DOP 03:12 Sodium Chloride 0.9% PHA 08/25/24 In Process 03:15 Complete Blood Count LAB 08/25/24 Logged 06:00 Basic Metabolic Panel LAB 08/25/24 Logged 06:00 Lipid Panel LAB 08/25/24 Logged 06:00 Aspirin Tablet PHA 08/25/24 In Process 10:00 Date of Service: Aug 25, 2024 Billing Provider: ODIN ARNOLD MD Common Visit Codes: 97226-[id number] INP/OBS CARE (HIGH) Secondary Visit Codes: [id number] CARE PLAN 30 MINUTES AKI ROMO RESIDENT Aug 25, 2024 06:27
--- NOTE | 2024-08-25 06:35 | ECG ---
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
--- NOTE | 2024-08-25 06:35 | ECG ---
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
[2024-08-25 06:45] LABS: Potassium 3.9 mmol/L (3.5-5.1); Sodium 144 mmol/L (136-145)
[2024-08-25 06:46] LABS: Anion Gap 9 (5-15); Calcium 9.8 mg/dL (8.7-10.4); Carbon Dioxide 26 mmol/L (20-31)
[2024-08-25 06:51] LABS: BUN/Creatinine Ratio 10.3 (10.0-20.0); Glucose 88 mg/dL (74-106); Triglycerides 122 mg/dL (< 150)
[2024-08-25 06:53] LABS: Cholesterol 195 mg/dL (< 200); HDL Cholesterol 46 mg/dL (40-59)
[2024-08-25 06:54] LABS: Basophils # (auto) 0.1 10 ^3/uL (0-0.2); Basophils % (auto) 0.8 % (0.0-2.0); Eosinophils # (auto) 0.3 10 ^3/uL (0-0.8); Hematocrit 41.5 % (41.0-53.0); Hemoglobin 14.2 g/dL (13.5-17.5); Lymphocytes % (auto) 30.7 % (10.0-50.0); Mean Corpuscular Hemoglobin 29.9 pg (28.0-32.0); Mean Corpuscular Hgb Conc. 34.2 g/dL (32.0-36.0); Mean Corpuscular Volume 87.4 fL (80.0-100.0); Monocytes # (auto) 0.6 10 ^3/uL (0-1.3); Monocytes % (auto) 9.8 % (0.0-12.0); Neutrophils # (auto) 3.4 10 ^3/uL (1.6-8.6); Neutrophils % (auto) 53.7 % (37.0-80.0); Nucleated Red Blood Cells % 0.2 %; Platelet Count (auto) 216 10^3/uL (140-450); Red Blood Cells 4.75 10^6/uL (4.5-5.90); Red Cell Distribution Width 12.8 % (11.8-14.3); White Blood Cell 6.4 10^3/uL (4.4-10.8)
[2024-08-25 06:56] LABS: Blood Urea Nitrogen 8 mg/dL (9-23); Chloride 109 mmol/L (98-107); LDL Cholesterol 139 mg/dL (< 100)
[2024-08-25 08:10] VITALS: RESP 14
[2024-08-25] MEDS: MORPHINE SULFATE INJ 2 MG/ml SYRG IV PRN (08:37)
--- NOTE | 2024-08-25 10:10 | DVH ---
Carotid Duplex Date: 08/25/2024 08:52 AM Clinical History: dizziness, TIA Comparison: None Technique: Duplex doppler evaluation of the extracranial carotid and vertebral arteries including col or doppler and spectral/pulsed waveform analysis was performed. Findings: RIGHT SIDE: The peak systolic velocities are 68 cm/s in the distal CCA and 82 cm/s in the proximal ICA.The ICA/CC A ratio is 1.2. The external carotid artery is patent with peak systolic velocity of 71 cm/s proximally. There is appropriate antegrade flow in the right vertebral artery. LEFT SIDE: The peak systolic velocities are 76 cm/s in the distal CCA and 95 cm/s in the proximal ICA.. The ICA/ CCA ratio is 1.3. The external carotid artery is patent with peak systolic velocity of 93 cm/s proximally. There is appropriate antegrade flow in the left vertebral artery. IMPRESSION: No hemodynamically significant stenosis noted in the right carotid system. No hemodynamically significant stenosis noted in the left carotid system. Reference: Radiology 2003; 229:[id number]
[2024-08-25] MEDS: ASPirin 81 mg TAB PO SCH (11:10)
--- NOTE | 2024-08-25 11:56 | DVHINCON2 ---
Date Seen: Aug 25, [address] Ugarte Reason for Consultation History of paroxysmal AFib, possible tachy-hardik History of Present Illness A 48-year-old male with a medical history of atrial fibrillation, obesity, and obstructive sleep apnea presents to the emergency department with a chief complaint of chest pain that has been ongoing for the past three days. He describes the pain as intermittent, left-sided chest pressure associated with numbness in both hands, palpitations, and mild shortness of breath. He denies radiation of the pain, diaphoresis, nausea, vomiting, or syncope. The patient is currently taking metoprolol succinate 25 mg daily for rate control but eat not on anticoagulation. He follows with his yarn examiner skeins, Dr. Maldonado in [place], and his manager ems, Dr. Romero at [facility], and reports a planned outpatient angiogram. He underwent a stress test two years ago with normal results. A cardiology consult was requested during this visit due to history of paroxysmal AFib and concern for possible tachy-hardik syndrome. The patient denies tobacco, alcohol, or illicit drug use Past Medical History As stated in HPI Past Surgical History Denies Family History Reviewed, non-contributory to the management of this case. Social History The patient lives at home, denies smoking, alcohol or illicit drugs abuse. Allergies: Coded Allergies: Penicillins (Verified Allergy, Unknown, 04/16/19) Home Meds Active Scripts Hydrocodone-Acetaminophen (Hydrocodone Bitartrate/AC 10-325 mg) 1 Tab Tab, 1 TAB PO Q6HPRN PRN, #30 TAB Prov:LAMINE HOSKINS DO 11/01/21 Tramadol Hcl (Ultram) 50 Mg Tab, 1 TAB PO Q6HR, #30 TAB Prov:ARNOLDO ROD MD 04/22/21 Reported Medications Nitroglycerin (Nitrostat) 0.4 Mg Sub, 0.4 MG SL, INJ 08/25/24 Pantoprazole Sodium Sesquihydr (Protonix) 40 Mg Tab, 40 MG PO DAILY, #30 TAB 08/25/24 Metoprolol Succinate (Toprol Xl) 25 Mg Tab, 1 TAB PO DAILY, #30 TAB 5 Refills 08/25/24 Current Medications Current Medications Medications (Trade) Dose Ordered Sig/Meli Route PRN Reason Start Time Stop Time Status Last Admin Nitroglycerin (Ntrostat Sublingual) 0.4 mg Q5MINP PRN SL FOR CHEST PAIN 08/24/24 23:30 08/25/24 00:49 DC Morphine Sulfate 2 mg Q30M PRN IV FOR CHEST PAIN 08/24/24 23:30 08/25/24 00:49 DC Nitroglycerin (Ntrostat Sublingual) 0.4 mg Q5MINP PRN SL FOR CHEST PAIN 08/25/24 03:15 Morphine Sulfate 2 mg Q30M PRN IV FOR CHEST PAIN 08/25/24 03:15 08/25/24 08:37 Aspirin 81 mg DAILY PO 08/25/24 10:00 Review of Systems Constitutional: Denies fever, chills, weight loss, or night sweats, Ears, Nose, & Throat: No symptom reported Eyes: No symptom reported Neurological: No symptoms reported Pulmonary/Respiratory: Positive for mild shortness of breath, denies cough or hemoptysis Cardiovascular: Positive for intermittent chest pain and palpitations. Denies orthopnea, PND, or edema Gastrointestinal: No symptom reported Genitourinary: No symptom reported Musculoskeletal: No symptom reported Skin: No symptom reported Psychiatric: No symptom reported Endocrine: No symptom reported Hemotologic/Lymphatic: No symptom reported Vital Signs Vital Signs Date Time Temp Pulse Resp B/P (MAP) Pulse Ox O2 Delivery O2 Flow Rate FiO2 08/25/24 09:07 67 16 116/75 08/25/24 08:10 Room Air* 0 21 08/25/24 07:25 98.0 100 98.0 Physical Exam INITIAL VITAL SIGNS: Reviewed by me GENERAL: Alert and interactive. No acute distress. HEAD: Head is normocephalic and atraumatic. EYES: EOMI, PERRL. No scleral icterus. No conjunctival injection. ENT: Moist mucous membranes. NECK: Supple, No masses, Full range of motion. RESPIRATORY: No tachypnea. Clear breath sounds bilaterally. No wheezing, rales, rhonchi. CV: Regular rate and rhythm. No murmurs, rubs, or gallops, no JVD GI/: Active bowel sounds, soft, nondistended, nontender. No guarding. No rebound. No masses. No CVA tenderness. INTEGUMENTARY: Warm and dry. No obvious rashes. NEUROLOGIC: Alert and oriented. Face is symmetric. Speech is normal. Moves all extremities equally. Labs/Diagnostic Data Labs Test 08/25/24 05:57 08/25/24 03:55 08/24/24 18:53 08/24/24 18:35 Range/Units White Blood Count 6.4 4.4-10.8 10^3/uL Red Blood Count 4.75 4.5-5.90 10^6/uL Hemoglobin 14.2 13.5-17.5 g/dL Hematocrit 41.5 41.0-53.0 % Mean Corpuscular Volume 87.4 80.0-100.0 fL Mean Corpuscular Hemoglobin 29.9 28.0-32.0 pg Mean Corpuscular Hemoglobin Concent 34.2 32.0-36.0 g/dL Red Cell Distribution Width 12.8 11.8-14.3 % Platelet Count 216 140-450 10^3/uL Mean Platelet Volume 8.3 6.9-10.8 fL Neutrophils (%) (Auto) 53.7 37.0-80.0 % Lymphocytes (%) (Auto) 30.7 10.0-50.0 % Monocytes (%) (Auto) 9.8 0.0-12.0 % Eosinophils (%) (Auto) 5.0 0.0-7.0 % Basophils (%) (Auto) 0.8 0.0-2.0 % Neutrophils # (Auto) 3.4 1.6-8.6 10 ^3/uL Lymphocytes # (Auto) 2.0 0.4-5.4 10 ^3/uL Monocytes # (Auto) 0.6 0-1.3 10 ^3/uL Eosinophils # (Auto) 0.3 0-0.8 10 ^3/uL Basophils # (Auto) 0.1 0-0.2 10 ^3/uL Nucleated Red Blood Cells 0.2 % Sodium Level 144 136-145 mmol/L Potassium Level 3.9 3.5-5.1 mmol/L Chloride Level 109 H 98-107 mmol/L Carbon Dioxide Level 26 20-31 mmol/L Anion Gap 9 5-15 Blood Urea Nitrogen 8 L 9-23 mg/dL Creatinine 0.78 0.700-1.30 mg/dL Glomerular Filtration Rate Calc 111 >90 mL/min BUN/Creatinine Ratio 10.3 10.0-20.0 Serum Glucose 88 74-106 mg/dL Calcium Level 9.8 8.7-10.4 mg/dL Triglycerides Level 122 < 150 mg/dL Cholesterol Level 195 < 200 mg/dL LDL Cholesterol 139 H < 100 mg/dL HDL Cholesterol 46 40-59 mg/dL Influenza Type A Antigen Negative Negative Influenza Type B Antigen Negative Negative SARS-CoV-2 Antigen (Rapid) Negative NEGATIVE Troponin I High Sensitivity 3 L </=54 ng/L Urine Color Yellow Yellow Urine Clarity Clear Clear Urine pH 5.5 5.0-9.0 Urine Specific [place] 1.023 1.001-1.035 Urine Protein Negative Negative Urine Ketones Negative Negative Urine Blood Negative Negative /uL Urine Nitrite Negative Negative Urine Bilirubin Negative Negative Urine Urobilinogen Normal Negative mg/dL Urine Leukocyte Esterase Negative Negative /uL Urine RBC 1 0 - 3 /hpf Urine Microscopic WBC 2 0-3 /HPF Urine Squamous Epithelial Cells Few <5 /hpf Urine Bacteria None seen None Seen /hpf Urine Hyaline Casts Mod 0 - 2 /lpf Urine Mucus Few None Seen Urine Glucose Normal Normal mg/dL Urine Opiates Screen Neg NEGATIVE Urine Fentanyl Screen Neg NEGATIVE Urine Barbiturates Screen Neg NEGATIVE Urine Phencyclidine Screen Neg NEGATIVE Urine Amphetamines Screen Neg NEGATIVE Urine Benzodiazepines Screen Neg NEGATIVE Urine Cocaine Screen Neg NEGATIVE Urine Cannabinoids Screen Neg NEGATIVE Test 08/24/24 17:20 08/24/24 15:19 Range/Units Lactic Acid Level 1.1 0.4-2.0 mmol/L Magnesium Level 1.9 1.6-2.6 mg/dL Total Bilirubin 1.5 H 0.2-1.0 mg/dL Aspartate Amino Transferase (AST) 28 <34 U/L Alanine Aminotransferase (ALT) 21 7-40 U/L Alkaline Phosphatase 56 46-116 U/L B-Type Natriuretic Peptide 55.92 0-100 pg/mL Total Protein 7.2 5.7-8.2 g/dL Albumin 4.8 3.2-4.8 g/dL Thyroid Stimulating Hormone (TSH) 1.53 0.55-4.78 uIU/mL PROCEDURE(s): CXRP - CHEST PORTABLE REASON: cp/sob/dizzy/palpitations ORDER NUMBER(s): [id number], ACCESSION NUMBER(s): [id number] EXAM: XY CHEST PORTABLE HISTORY: cp/sob/dizzy/palpitations COMPARISON: None TECHNIQUE: Portable AP view of the chest was performed. FINDINGS: No pneumothorax, consolidative infiltrates, or pulmonary edema. The heart is not enlarged. There is mild thoracic spondylosis and scoliosis. IMPRESSION: No acute intrathoracic process. Assessment Paroxysmal AFib, possible tachy-hardik syndrome Chest pain to rule out ACS Obstructive sleep apnea Plan/Recommendation (Dr. Kenyon ): 1. Paroxysmal AFib, possible tachy/ Hardik syndrome * Continue metoprolol succinate 25 mg daily for rate control * Chads Vasc score 0 * Magnesium oxide 400 mg b.i.d. * Monitor telemetry for bradyarrhythmias or tachyarrhythmias * Order transthoracic echocardiogram to evaluate cardiac structure and function 2. Chest pain * Serial troponins negative, no acute ischemia noted * Proceed with planned outpatient angiogram per cardiology 3. Electrolyte management * Start magnesium oxide 400 p.o. twice daily * Monitor electrolytes to keep magnesium level of 2.2 and K 4.0 Tentative plan for [facility] with Dr Brianna Kenyon on tuesday08/27/24. Discussed plan with patient and in agreement with [facility]. This medical document was created using an electronic medical record system with voice recognition software and computerized dictation system. Although this document has been carefully reviewed, there might still be some phonetic and typographical errors. Occasional wrong-word or ``sound-alike substitutions may have occurred due to the inherent limitations of voice recognition software. These areas are purely typographical due to imperfections of the software programs and do not reflect any compromise in the patient's medical care. Please read the chart carefully and recognize, using context, where these substitutions have occurred. Plan discussed with: Patient Plan discussed with: Patient NYHA Physical activity limitations: NA Date of Service: Aug 25, 2024 Billing Provider: RANDALL KENYON MD Cardiology Common Codes: CONSULT ONLY Cardiology Consultation Codes: [id number] CONSULT <45MIN [facility] Aug 25, 2024 11:56
[2024-08-25] MEDS ORDERED: NITR0.4S29 SL (12:58)
[2024-08-25] MEDS ORDERED: METO25TA36 PO (12:58)
[2024-08-25] MEDS ORDERED: PANT40TA2 PO (12:58)
[2024-08-25] MEDS: MAGNESIUM SULFATE 1GM/100ML 100 ML IV ONE (13:57)
[2024-08-25] MEDS: METOPROLOL SUCCINATE XL 50 MG TAB PO ONE (14:49)
--- NOTE | 2024-08-25 16:42 | DVHPN2 ---
Subjective Patient denies any chest pain at this time. Reviewed: Care Plan, H&P, Labs, Medications Changes from previous H/P or p: No Changes General: Per HPI Objective Vitals Vital Signs Date Time Temp Pulse Resp B/P (MAP) Pulse Ox O2 Delivery O2 Flow Rate FiO2 08/25/24 14:49 52 114/77 08/25/24 10:00 14 100 08/25/24 09:00 98.3 98.3 08/25/24 08:10 Room Air* 0 21 Intake/Output Intake and Output 08/25/24 07:00 Intake Total 2000 ml Balance 2000 ml Intake IV Total 2000 ml General Appearance: Alert, Oriented X3, Cooperative, No acute distress HEENT: Atraumatic, PERRLA Cardiovascular: Normal S1, Normal S2 Musculoskeletal: Normal sensory function, Normal motor function Skin: Dry, Intact Psych/Mental Status: Mental status NL, Mood NL Medications Current Medications Medications Dose Ordered Sig/Meli Route Start Time Stop Time Status Last Admin Dose Admin Nitroglycerin 0.4 mg Q5MINP PRN SL 08/25/24 03:15 Morphine Sulfate 2 mg Q30M PRN IV 08/25/24 03:15 08/25/24 08:37 2 MG Aspirin 81 mg DAILY PO 08/25/24 10:00 08/25/24 11:10 81 MG Magnesium Oxide 400 mg BID PO 08/25/24 22:00 Metoprolol Succinate 25 mg DAILY PO 08/26/24 10:00 Laboratory Results Laboratory Tests 08/25/24 05:57 Chemistry Test 08/25/24 05:57 Calcium Level 9.8 mg/dL (8.7-10.4) Lipid panel Test 08/25/24 05:57 Cholesterol Level 195 mg/dL (< 200) HDL Cholesterol 46 mg/dL (40-59) Triglycerides Level 122 mg/dL (< 150) Urinalysis Test 08/24/24 18:35 Urine Color Yellow (Yellow) Urine Clarity Clear (Clear) Urine pH 5.5 (5.0-9.0) Urine Specific [place] 1.023 (1.001-1.035) Urine Protein Negative (Negative) Urine Ketones Negative (Negative) Urine Blood Negative /uL (Negative) Urine Nitrite Negative (Negative) Urine Bilirubin Negative (Negative) Urine Urobilinogen Normal mg/dL (Negative) Urine Leukocyte Esterase Negative /uL (Negative) Urine RBC 1 /hpf (0 - 3) Urine Microscopic WBC 2 /HPF (0-3) Urine Squamous Epithelial Cells Few /hpf (<5) Urine Bacteria None seen /hpf (None Seen) Urine Hyaline Casts Mod /lpf (0 - 2) Urine Mucus Few (None Seen) Urine Glucose Normal mg/dL (Normal) Labs and/or images reviewed: Labs reviewed by me, Image(s) reviewed by me Assessment/Plan Assessment/Plan Impression: -chest pain, rule out ACS -paroxysmal atrial fibrillation Plan: -cardiology consultation: Plans for left heart catheterization this Tuesday -continue rate control with beta-gracia therapy -ACS protocol, troponins negative x3 -echocardiogram, pending Total time spent with patient discussing and formulating plan of care: 35 minutes. This medical document was created using an electronic medical record system with [facility] dictation system. Although this document has been carefully reviewed, there may still be some phonetic and typographical errors. These areas are purely typographical due to imperfections of the software programs, and do not reflect any compromise in the patient's medical care. Plan discussed with: Patient, Other (RN) My Orders Orders - CHIKI RIVERA NP Procedure Category Date Status Time Cardiac DIET 08/25/24 Transmitted Diet-2gna,Lofat,Lochol Dinner Date of Service: Aug 25, 2024 Billing Provider: CHIKI RIVERA NP Common Visit Codes: [id number] INP/OBS CARE(HIGH) CHIKI RIVERA NP Aug 25, 2024 16:42
[2024-08-25] MEDS: SODIUM CHLORIDE 0.9% 1,000 ML IV SCH (17:15)
[2024-08-25 18:49] LABS: INR 1.02 (0.9-1.15); Partial Thromboplastin Time 26.2 SEC (24.5-34.5); Prothrombin Time 10.8 sec (9.3-11.8)
--- NOTE | 2024-08-25 18:52 | DVHSR ---
APPROVED REPORT EXAM: Two-dimensional and M-mode echocardiogram with Doppler and color Doppler. Blood Pressure: 122/72 mmHg INDICATION SOB RISK FACTORS Height: 6'5, Weight: 230 DIMENSIONS LVDd4.7 (3.8-5.7cm)LA (2D)4.1 (1.9-4.0cm)Aortic Root3.9 (2.0-3.7cm) LVDs3.6 (2.5-4.0cm)LA (MM) (1.9-4.0cm)Aortic Cusp Exc2.4 (1.5-2.0cm) EF (%) 48.0 (55-70%)Rt. Atrium4.1 (1.9-4.0cm)Asc. Aorta3.4 cm IVSd1.0 (0.7-1.1cm)RV (D)4.8 (1.8-2.4cm) PWd0.9 (0.7-1.1cm) Mitral Valve MitralMitral Stenosis E wave0.68m/sMV Mean GR.mmHg A wave0.53m/sMV Peak GR.mmHg E/A ratio1.32D MVAcm2 DECEL [id number] 1/2 Timems Aortic Valve Aortic ValveAortic Stenosis V10.83m/Edy Mean GR.3mmHg V21.10m/Edy Peak GR.5mmHg LVOT Diameter2.2 (1.8-2.4cm)Doppler AVA2.87cm2 Pulmonic Valve V20.62m/s Tricuspid Valve TR Velocity1.98m/s [id number] Other Information Technically limited study due to body habitus.patient position. Conclusion NORMAL LV EF IS 60% NORMAL VALVES NO EFFUSION NORMAL RV FUNCTION
[2024-08-25 20:00] VITALS: PULSE 62
[2024-08-25 21:00] VITALS: BP 133/78; PULSE 64; RESP 17; TEMP 98.1; O2SAT 99
[2024-08-25] MEDS: MAGNESIUM OXIDE 400 MG TAB PO SCH (23:18)
--- NOTE | 2024-08-25 23:36 | DVHINCON2 ---
Date Seen: Aug 25, [address] Ugarte Reason for Consultation History of paroxysmal AFib, possible tachy-rick History of Present Illness This is a 48-year-old male with a past medical history of atrial fibrillation, obesity, and obstructive sleep apnea who presents to the emergency department with a complaint of chest pain that has been ongoing for the past three days. Patient describes the pain as intermittent, left-sided chest pressure associated with numbness in both hands, palpitations, and mild shortness of breath. He denies radiation of the pain, diaphoresis, nausea, vomiting, or syncope. Patient is currently taking metoprolol succinate 25 mg daily for rate control but eat not on anticoagulation. Patient follows with his nutritional yeast supervisor, Dr. Maldonado in [place], and his rn progressive care, Dr. Romero at [facility], and reports a planned outpatient angiogram. He underwent a stress test two years ago with no rmal results. A cardiology consult was requested during this visit due to history of paroxysmal AFib and concern for possible tachy-rick syndrome. The patient denies tobacco, alcohol, or illicit drug use. Troponin is negative. Chest x-ray showed NAD. Past Medical History As stated in HPI Past Surgical History Denies Family History: Patient reports no known family medical history. Allergies: Coded Allergies: Penicillins (Verified Allergy, Unknown, 04/16/19) Home Meds Active Scripts Hydrocodone-Acetaminophen (Hydrocodone Bitartrate/AC 10-325 mg) 1 Tab Tab, 1 TAB PO Q6HPRN PRN, #30 TAB Prov:LAMINE HOSKINS DO 11/01/21 Tramadol Hcl (Ultram) 50 Mg Tab, 1 TAB PO Q6HR, #30 TAB Prov:ARNOLDO ROD MD 04/22/21 Reported Medications Nitroglycerin (Nitrostat) 0.4 Mg Sub, 0.4 MG SL, INJ 08/25/24 Pantoprazole Sodium Sesquihydr (Protonix) 40 Mg Tab, 40 MG PO DAILY, #30 TAB 08/25/24 Metoprolol Succinate (Toprol Xl) 25 Mg Tab, 1 TAB PO DAILY, #30 TAB 5 Refills 08/25/24 Current Medications Current Medications Medications (Trade) Dose Ordered Sig/Meli Route PRN Reason Start Time Stop Time Status Last Admin Nitroglycerin (Ntrostat Sublingual) 0.4 mg Q5MINP PRN SL FOR CHEST PAIN 08/24/24 23:30 08/25/24 00:49 DC Morphine Sulfate 2 mg Q30M PRN IV FOR CHEST PAIN 08/24/24 23:30 08/25/24 00:49 DC Nitroglycerin (Ntrostat Sublingual) 0.4 mg Q5MINP PRN SL FOR CHEST PAIN 08/25/24 03:15 Morphine Sulfate 2 mg Q30M PRN IV FOR CHEST PAIN 08/25/24 03:15 08/25/24 08:37 Aspirin 81 mg DAILY PO 08/25/24 10:00 08/25/24 11:10 Magnesium Oxide (Mag-Ox Tablet) 400 mg BID PO 08/25/24 22:00 Metoprolol Succinate (Toprol Xl) 25 mg DAILY PO 08/26/24 10:00 Review of Systems Constitutional: Denies fever, chills, weight loss, or night sweats, Ears, Nose, & Throat: No symptom reported Eyes: No symptom reported Neurological: No symptoms reported Pulmonary/Respiratory: Positive for mild shortness of breath, denies cough or hemoptysis Cardiovascular: Positive for intermittent chest pain and palpitations. Denies orthopnea, PND, or edema Gastrointestinal: No symptom reported Genitourinary: No symptom reported Musculoskeletal: No symptom reported Skin: No symptom reported Psychiatric: No symptom reported Endocrine: No symptom reported Hemotologic/Lymphatic: No symptom reported Vital Signs Vital Signs Date Time Temp Pulse Resp B/P (MAP) Pulse Ox O2 Delivery O2 Flow Rate FiO2 08/25/24 10:00 60 14 112/57 (75) 100 08/25/24 09:00 98.3 98.3 08/25/24 08:10 Room Air* 0 21 Physical Exam GENERAL: Alert and oriented x 3. No acute distress. EYES: PERRL, EOMI. Anicteric. HENT: Moist mucous membranes. LUNGS: Clear to auscultation bilaterally. CARDIOVASCULAR: Regular rate and rhythm. ABDOMEN: Soft, nontender and nondistended. EXTREMITIES: No edema. NEUROLOGIC: No focal neurological deficits. SKIN: Warm, dry. Labs/Diagnostic Data Labs Test 08/25/24 05:57 08/25/24 03:55 08/24/24 18:53 08/24/24 18:35 Range/Units White Blood Count 6.4 4.4-10.8 10^3/uL Red Blood Count 4.75 4.5-5.90 10^6/uL Hemoglobin 14.2 13.5-17.5 g/dL Hematocrit 41.5 41.0-53.0 % Mean Corpuscular Volume 87.4 80.0-100.0 fL Mean Corpuscular Hemoglobin 29.9 28.0-32.0 pg Mean Corpuscular Hemoglobin Concent 34.2 32.0-36.0 g/dL Red Cell Distribution Width 12.8 11.8-14.3 % Platelet Count 216 140-450 10^3/uL Mean Platelet Volume 8.3 6.9-10.8 fL Neutrophils (%) (Auto) 53.7 37.0-80.0 % Lymphocytes (%) (Auto) 30.7 10.0-50.0 % Monocytes (%) (Auto) 9.8 0.0-12.0 % Eosinophils (%) (Auto) 5.0 0.0-7.0 % Basophils (%) (Auto) 0.8 0.0-2.0 % Neutrophils # (Auto) 3.4 1.6-8.6 10 ^3/uL Lymphocytes # (Auto) 2.0 0.4-5.4 10 ^3/uL Monocytes # (Auto) 0.6 0-1.3 10 ^3/uL Eosinophils # (Auto) 0.3 0-0.8 10 ^3/uL Basophils # (Auto) 0.1 0-0.2 10 ^3/uL Nucleated Red Blood Cells 0.2 % Sodium Level 144 136-145 mmol/L Potassium Level 3.9 3.5-5.1 mmol/L Chloride Level 109 H 98-107 mmol/L Carbon Dioxide Level 26 20-31 mmol/L Anion Gap 9 5-15 Blood Urea Nitrogen 8 L 9-23 mg/dL Creatinine 0.78 0.700-1.30 mg/dL Glomerular Filtration Rate Calc 111 >90 mL/min BUN/Creatinine Ratio 10.3 10.0-20.0 Serum Glucose 88 74-106 mg/dL Calcium Level 9.8 8.7-10.4 mg/dL Triglycerides Level 122 < 150 mg/dL Cholesterol Level 195 < 200 mg/dL LDL Cholesterol 139 H < 100 mg/dL HDL Cholesterol 46 40-59 mg/dL Influenza Type A Antigen Negative Negative Influenza Type B Antigen Negative Negative SARS-CoV-2 Antigen (Rapid) Negative NEGATIVE Troponin I High Sensitivity 3 L </=54 ng/L Urine Color Yellow Yellow Urine Clarity Clear Clear Urine pH 5.5 5.0-9.0 Urine Specific [place] 1.023 1.001-1.035 Urine Protein Negative Negative Urine Ketones Negative Negative Urine Blood Negative Negative /uL Urine Nitrite Negative Negative Urine Bilirubin Negative Negative Urine Urobilinogen Normal Negative mg/dL Urine Leukocyte Esterase Negative Negative /uL Urine RBC 1 0 - 3 /hpf Urine Microscopic WBC 2 0-3 /HPF Urine Squamous Epithelial Cells Few <5 /hpf Urine Bacteria None seen None Seen /hpf Urine Hyaline Casts Mod 0 - 2 /lpf Urine Mucus Few None Seen Urine Glucose Normal Normal mg/dL Urine Opiates Screen Neg NEGATIVE Urine Fentanyl Screen Neg NEGATIVE Urine Barbiturates Screen Neg NEGATIVE Urine Phencyclidine Screen Neg NEGATIVE Urine Amphetamines Screen Neg NEGATIVE Urine Benzodiazepines Screen Neg NEGATIVE Urine Cocaine Screen Neg NEGATIVE Urine Cannabinoids Screen Neg NEGATIVE Test 08/24/24 17:20 08/24/24 15:19 Range/Units Lactic Acid Level 1.1 0.4-2.0 mmol/L Magnesium Level 1.9 1.6-2.6 mg/dL Total Bilirubin 1.5 H 0.2-1.0 mg/dL Aspartate Amino Transferase (AST) 28 <34 U/L Alanine Aminotransferase (ALT) 21 7-40 U/L Alkaline Phosphatase 56 46-116 U/L B-Type Natriuretic Peptide 55.92 0-100 pg/mL Total Protein 7.2 5.7-8.2 g/dL Albumin 4.8 3.2-4.8 g/dL Thyroid Stimulating Hormone (TSH) 1.53 0.55-4.78 uIU/mL Assessment Paroxysmal AFib, possible tachy-irck syndrome. Chest pain to rule out ACS. Obstructive sleep apnea. Plan/Recommendation I agree with your ongoing assessment and care of plan. Patient has been seen by Meena Garcia NP on my behalf, her and I discussed the plan with the patient. Continue metoprolol succinate 25 mg daily for rate control. Chads Vasc score 0. Magnesium oxide 400 mg b.i.d. Monitor telemetry for bradyarrhythmias or tachyarrhythmias. Order transthoracic echocardiogram to evaluate cardiac structure and function. Outpatient court recording monitor Holter/event monitor. Continue outpatient cardiology and electrophysiology follow-up. Serial troponins negative, no acute ischemia noted. Proceed with planned outpatient angiogram per cardiology. Start magnesium oxide 400 p.o. twice daily . Monitor electrolytes to keep magnesium level of 2.2 and K 4.0. Additional plan as per the hospital course. Plan discussed with: Patient NYHA Physical activity limitations: NA Date of Service: Aug 25, 2024 Billing Provider: RANDALL CLEMONS MD Cardiology Common Codes: [id number] INP/OBS CARE (High) Cardiology Consultation Codes: [id number] CONSULT <60MIN RANDALL CLEMONS MD Aug 25, 2024 14:40
[2024-08-26] VITALS (8 sets, daily range): BP systolic 103–125; BP diastolic 64–78; PULSE 49–97; RESP 16–21; TEMP 96–98.1; O2SAT 98–100
[2024-08-26] MEDS: METOPROLOL SUCCINATE XL 50 MG TAB PO SCH (08:44)
--- NOTE | 2024-08-26 10:42 | DVHPN2 ---
Consult Progress Note Subjective Review of Systems: HEENT:Normal, RESPIRATORY:Normal Other Systems: Complaint of chest pain 2/10 Objective vital signs Vital Sign Date Time Temp Pulse Resp B/P (MAP) Pulse Ox O2 Delivery O2 Flow Rate FiO2 08/26/24 08:44 97 116/81 08/26/24 08:42 96.3 21 98 96.3 08/25/24 20:00 Room Air* 0 21 Total Intake and Output 08/25/24 08/25/24 08/26/24 15:00 23:00 07:00 Intake Total 300 ml 1350 ml Balance 300 ml 1350 ml medications Current Medications Medications Dose Ordered Sig/Meli Route Start Time Stop Time Status Last Admin Dose Admin Nitroglycerin 0.4 mg Q5MINP PRN SL 08/25/24 03:15 Morphine Sulfate 2 mg Q30M PRN IV 08/25/24 03:15 08/25/24 08:37 2 MG Aspirin 81 mg DAILY PO 08/25/24 10:00 08/26/24 08:45 81 MG Magnesium Oxide 400 mg BID PO 08/25/24 22:00 08/26/24 08:44 400 MG Metoprolol Succinate 25 mg DAILY PO 08/26/24 10:00 08/26/24 08:44 25 MG Sodium Chloride 1,000 ml @ 75 mls/hr [id number] IV 08/25/24 17:15 08/25/24 17:15 75 MLS/HR Examination: GENERAL:Normal, LUNGS:Normal, CVS:Abnormal laboratory and microbiology Laboratory Tests 08/25/24 05:57 Test 08/25/24 05:57 Range/Units Serum Glucose 88 74-106 mg/dL Problem List/Assessment/Plan Problem List/Assessment/Plan Paroxysmal AFib, possible tachy-rick syndrome Chest pain to rule out ACS Obstructive sleep apnea Plan/Recommendation (Dr. Clemons ): The patient reports chest pain rated 2/10, troponin is negative and 12 lead EKG shows no significant changes. The patient declined nitroglycerin but accepted morphine, which provided symptom relief. He continues to be monitored under close cardiac surveillance. The patient is scheduled for left heart catheterization tomorrow the plan for left heart catheterization, including its indication, risks, and benefits was discussed with patient. Plan discussed with: Patient, Other (RN) Date of Service: Aug 26, 2024 Billing Provider: RANDALL CLEMONS MD Common Visit Codes: CONSULT ONLY Consultation Codes: [id number] CONSULT <45MIN ADRIEL PIERCE DIRECTOR OF [employer] Aug 26, 2024 10:42
--- NOTE | 2024-08-26 14:16 | DVHPN2 ---
Subjective Patient denies any chest pain at this time. Reviewed: Care Plan, H&P, Labs, Medications Changes from previous H/P or p: No Changes General: Per HPI Objective Vitals Vital Signs Date Time Temp Pulse Resp B/P (MAP) Pulse Ox O2 Delivery O2 Flow Rate FiO2 08/26/24 12:39 96.0 56 17 123/78 (93) 98 96.0 08/25/24 20:00 Room Air* 0 21 Intake/Output Intake and Output 08/26/24 07:00 Intake Total 1650 ml Balance 1650 ml Intake Oral 600 ml IV Total 1050 ml # Voids 1 General Appearance: Alert, Oriented X3, Cooperative, No acute distress HEENT: Atraumatic, PERRLA Cardiovascular: Normal S1, Normal S2 Musculoskeletal: Normal sensory function, Normal motor function Skin: Dry, Intact Psych/Mental Status: Mental status NL, Mood NL Medications Current Medications Medications Dose Ordered Sig/Meli Route Start Time Stop Time Status Last Admin Dose Admin Nitroglycerin 0.4 mg Q5MINP PRN SL 08/25/24 03:15 Morphine Sulfate 2 mg Q30M PRN IV 08/25/24 03:15 08/25/24 08:37 2 MG Aspirin 81 mg DAILY PO 08/25/24 10:00 08/26/24 08:45 81 MG Magnesium Oxide 400 mg BID PO 08/25/24 22:00 08/26/24 08:44 400 MG Metoprolol Succinate 25 mg DAILY PO 08/26/24 10:00 08/26/24 08:44 25 MG Sodium Chloride 1,000 ml @ 75 mls/hr [id number] IV 08/25/24 17:15 08/25/24 17:15 75 MLS/HR Laboratory Results Laboratory Tests 08/25/24 05:57 Coagulation Test 08/25/24 18:22 Prothrombin Time 10.8 sec (9.3-11.8) Prothrombin Time INR 1.02 (0.9-1.15) Activated Partial Thromboplast Time 26.2 SEC (24.5-34.5) Urinalysis Test 08/24/24 18:35 Urine Color Yellow (Yellow) Urine Clarity Clear (Clear) Urine pH 5.5 (5.0-9.0) Urine Specific [place] 1.023 (1.001-1.035) Urine Protein Negative (Negative) Urine Ketones Negative (Negative) Urine Blood Negative /uL (Negative) Urine Nitrite Negative (Negative) Urine Bilirubin Negative (Negative) Urine Urobilinogen Normal mg/dL (Negative) Urine Leukocyte Esterase Negative /uL (Negative) Urine RBC 1 /hpf (0 - 3) Urine Microscopic WBC 2 /HPF (0-3) Urine Squamous Epithelial Cells Few /hpf (<5) Urine Bacteria None seen /hpf (None Seen) Urine Hyaline Casts Mod /lpf (0 - 2) Urine Mucus Few (None Seen) Urine Glucose Normal mg/dL (Normal) Labs and/or images reviewed: Labs reviewed by me, Image(s) reviewed by me Assessment/Plan Assessment/Plan Impression: -chest pain, rule out ACS -paroxysmal atrial fibrillation Plan: Events: Patient denies having any chest pain overnight. Clarified with Cardiology. Plans for left heart catheterization tomorrow. -cardiology consultation: Recommendations reviewed -continue rate control with beta-gracia therapy -ACS protocol, troponins negative x3 -echocardiogram, pending Total time spent with patient discussing and formulating plan of care: 35 minutes. This medical document was created using an electronic medical record system with [employer] dictation system. Although this document has been carefully reviewed, there may still be some phonetic and typographical errors. These areas are purely typographical due to imperfections of the software programs, and do not reflect any compromise in the patient's medical care. Plan discussed with: Patient, Other (RN) My Orders Orders - CHIKI RIVERA NP Procedure Category Date Status Time Cardiac DIET 08/25/24 Transmitted Diet-2gna,Lofat,Lochol Dinner Date of Service: Aug 26, 2024 Billing Provider: CHIKI RIVERA NP Common Visit Codes: [id number] INP/OBS CARE(HIGH) CHIKI RIVERA NP Aug 26, 2024 14:16
--- NOTE | 2024-08-26 23:26 | DVHPN2 ---
Consult Progress Note Subjective Review of Systems: HEENT:Normal, RESPIRATORY:Normal Other Systems: Patient was seen and evaluated in follow up. Patient complains of 2/10 chest pain. Telemetry reviewed. Objective vital signs Vital Sign Date Time Temp Pulse Resp B/P (MAP) Pulse Ox O2 Delivery O2 Flow Rate FiO2 08/26/24 12:39 96.0 56 17 123/78 (93) 98 96.0 08/25/24 20:00 Room Air* 0 21 Total Intake and Output 08/25/24 08/25/24 08/26/24 15:00 23:00 07:00 Intake Total 300 ml 1350 ml Balance 300 ml 1350 ml medications Current Medications Medications Dose Ordered Sig/Meli Route Start Time Stop Time Status Last Admin Dose Admin Nitroglycerin 0.4 mg Q5MINP PRN SL 08/25/24 03:15 Morphine Sulfate 2 mg Q30M PRN IV 08/25/24 03:15 08/25/24 08:37 2 MG Aspirin 81 mg DAILY PO 08/25/24 10:00 08/26/24 08:45 81 MG Magnesium Oxide 400 mg BID PO 08/25/24 22:00 08/26/24 08:44 400 MG Metoprolol Succinate 25 mg DAILY PO 08/26/24 10:00 08/26/24 08:44 25 MG Sodium Chloride 1,000 ml @ 75 mls/hr [id number] IV 08/25/24 17:15 08/25/24 17:15 75 MLS/HR Examination: GENERAL:Normal, HEENT:Normal, NECK:Normal, LUNGS:Normal, CVS:Abnormal, ABDOMEN:Normal, MSK:Normal, SKIN:Normal laboratory and microbiology Laboratory Tests 08/25/24 05:57 Test 08/25/24 05:57 Range/Units Serum Glucose 88 74-106 mg/dL Problem List/Assessment/Plan Problem List/Assessment/Plan Problem List/Assessment/Plan Paroxysmal AFib, possible tachy-rick syndrome. Chest pain to rule out ACS. Obstructive sleep apnea. Plan/Recommendation Continued all current supportive medical care. Patient has been seen by Meena Garcia NP on my behalf, her and I discussed the plan with the patient. The patient reports chest pain rated 2/10, troponin is negative and 12 lead EKG shows no significant changes. The patient declined nitroglycerin but accepted morphine, which provided symptom relief. He continues to be monitored under close cardiac surveillance. The patient is scheduled for left heart catheterization tomorrow the plan for left heart catheterization, including its indication, risks, and benefits was discussed with patient. Additional plan as per the hospital course. Plan discussed with: Patient Date of Service: Aug 26, 2024 Billing Provider: RANDALL CLEMONS MD Cardiology Common Codes: [id number] INP/OBS CARE (High) Cardiology Consultation Codes: [id number] CONSULT <45MIN RANDALL CLEMONS MD Aug 26, 2024 13:22
[2024-08-27] VITALS (11 sets, daily range): BP systolic 108–131; BP diastolic 75–87; PULSE 50–72; RESP 11–18; TEMP 97.4–98.3; O2SAT 96–100
[2024-08-27 05:44] LABS: Alanine Aminotransferase 22 U/L (7-40); Albumin 4.8 g/dL (3.2-4.8); Alkaline Phosphatase 60 U/L (46-116); Anion Gap 10 (5-15); Aspartate Aminotransferase 28 U/L (<34); BUN/Creatinine Ratio 12.9 (10.0-20.0); Blood Urea Nitrogen 11 mg/dL (9-23); Carbon Dioxide 27 mmol/L (20-31); Chloride 105 mmol/L (98-107); Glucose 88 mg/dL (74-106); Potassium 4.1 mmol/L (3.5-5.1); Sodium 142 mmol/L (136-145); Total Protein 7.5 g/dL (5.7-8.2)
[2024-08-27 05:48] LABS: Bilirubin, Total 1.7 mg/dL (0.2-1.0)
[2024-08-27] MEDS: HEPARIN SODIUM (PORCINE) 5000 UNITS/ML 1ML VIAL ONE (07:58)
[2024-08-27] MEDS: ANGIOMAX 250 MG VIAL IV ONE (07:58)
[2024-08-27] MEDS: VERAPAMIL 2.5MG/ML INJ 2ML VIAL IV ONE (07:58)
[2024-08-27] MEDS: LIDOCAINE 2%HCL (LOCAL ANESTH.) INJ 20ML MDV ONE (07:59)
[2024-08-27] MEDS: MIDAZOLAM HCL 2MG/2ML 2ml VIAL (1mg/ml) ONE (07:59)
[2024-08-27] MEDS: fentaNYL CITRATE 100 MCG/2 ML VL ONE (07:59)
[2024-08-27] MEDS: IODIXANOL 320MG/ML 100ML BTL IV ONE (07:59)
[2024-08-27] MEDS: SODIUM CHL 0.9% 0 ML ONE (08:00)
--- NOTE | 2024-08-27 10:26 | DVHOP ---
DATE OF SURGERY: 08/27/2024 TECHNIQUE PERFORMED: * Ultrasound of the right radial artery. * Management of conscious sedation. * Insertion of 6-Serbian arterial line from right radial artery under ultrasound guidance. * Left heart cath. * Left ventriculogram. * [place] selective left and right coronary artery angiography. ASSISTANTS: Assisted by the nurse, Nicole. Other assistants are Hina Seth, and Greg. COMPLICATIONS: None. INDICATIONS: Angina symptoms. Procedure risks and benefits all have been explained. The patient understands very well. DESCRIPTION OF PROCEDURE: In a standard manner, the patient's right radial area thoroughly cleaned with soap and Betadine. Lidocaine was given. 6-Serbian arterial line was placed in the standard manner. The patient got 100 mcg of the nitro, 2000 units of heparin, and 2.5 mg of verapamil. Subsequently, we put a TIG catheter 5-Serbian 4.0 and left coronary angiography was done with the help of similar catheter. We also did right coronary angiography with the help of pigtail catheter. Complete left heart cath also had been done. The left ventriculogram was done in the right anterior oblique view with a total of 10 mL dye. Post LV gram, left ventriculography was performed with the help of pull-through technique. Aortic pressure was also performed. J-wire was passed. Pigtail catheter also had been discontinued and the procedure completed without any complications. IMPRESSION: * Normal left ventricle. * The left anterior artery is a very large artery and is normal. * The diagonal artery is normal. * Circumflex and obtuse marginal artery both are of moderate size and normal. * The patient's right coronary artery is nondominant normal. * Ejection fraction of the left ventricle is 60% normal. CONCLUSION: No evidence of any occlusive coronary artery disease. Ejection fraction 60%. Vince Kenyon MD MP/KAYKAY/AYO/SMOOTH TID: [id number] RECEIPT: [id number] [facility]ITAL[facility]
--- NOTE | 2024-08-27 14:49 | DVHDS2 ---
Discharge Summary Date of Admission Aug 24, 2024 at 23:18 Date of Discharge: Aug 27, 2024 Admitting Diagnosis Chest pain, rule out ACS Labs/Diagnostic Data: Laboratory Results Test 08/27/24 05:00 08/26/24 07:31 08/25/24 18:22 08/25/24 05:57 Sodium Level 142 mmol/L (136-145) Potassium Level 4.1 mmol/L (3.5-5.1) Chloride Level 105 mmol/L (98-107) Carbon Dioxide Level 27 mmol/L (20-31) Anion Gap 10 (5-15) Blood Urea Nitrogen 11 mg/dL (9-23) Creatinine 0.85 mg/dL (0.700-1.30) Glomerular Filtration Rate Calc 108 mL/min (>90) BUN/Creatinine Ratio 12.9 (10.0-20.0) Serum Glucose 88 mg/dL (74-106) Calcium Level 10.0 mg/dL (8.7-10.4) Total Bilirubin 1.7 mg/dL (0.2-1.0) Aspartate Amino Transferase (AST) 28 U/L (<34) Alanine Aminotransferase (ALT) 22 U/L (7-40) Alkaline Phosphatase 60 U/L (46-116) Total Protein 7.5 g/dL (5.7-8.2) Albumin 4.8 g/dL (3.2-4.8) Troponin I High Sensitivity 5 ng/L (</=54) Prothrombin Time 10.8 sec (9.3-11.8) Prothrombin Time INR 1.02 (0.9-1.15) Activated Partial Thromboplast Time 26.2 SEC (24.5-34.5) White Blood Count 6.4 10^3/uL (4.4-10.8) Red Blood Count 4.75 10^6/uL (4.5-5.90) Hemoglobin 14.2 g/dL (13.5-17.5) Hematocrit 41.5 % (41.0-53.0) Mean Corpuscular Volume 87.4 fL (80.0-100.0) Mean Corpuscular Hemoglobin 29.9 pg (28.0-32.0) Mean Corpuscular Hemoglobin Concent 34.2 g/dL (32.0-36.0) Red Cell Distribution Width 12.8 % (11.8-14.3) Platelet Count 216 10^3/uL (140-450) Mean Platelet Volume 8.3 fL (6.9-10.8) Neutrophils (%) (Auto) 53.7 % (37.0-80.0) Lymphocytes (%) (Auto) 30.7 % (10.0-50.0) Monocytes (%) (Auto) 9.8 % (0.0-12.0) Eosinophils (%) (Auto) 5.0 % (0.0-7.0) Basophils (%) (Auto) 0.8 % (0.0-2.0) Neutrophils # (Auto) 3.4 10 ^3/uL (1.6-8.6) Lymphocytes # (Auto) 2.0 10 ^3/uL (0.4-5.4) Monocytes # (Auto) 0.6 10 ^3/uL (0-1.3) Eosinophils # (Auto) 0.3 10 ^3/uL (0-0.8) Basophils # (Auto) 0.1 10 ^3/uL (0-0.2) Nucleated Red Blood Cells 0.2 % Triglycerides Level 122 mg/dL (< 150) Cholesterol Level 195 mg/dL (< 200) LDL Cholesterol 139 mg/dL (< 100) HDL Cholesterol 46 mg/dL (40-59) Test 08/25/24 03:55 08/24/24 18:35 08/24/24 17:20 08/24/24 15:19 Influenza Type A Antigen Negative (Negative) Influenza Type B Antigen Negative (Negative) SARS-CoV-2 Antigen (Rapid) Negative (NEGATIVE) Urine Color Yellow (Yellow) Urine Clarity Clear (Clear) Urine pH 5.5 (5.0-9.0) Urine Specific [place] 1.023 (1.001-1.035) Urine Protein Negative (Negative) Urine Ketones Negative (Negative) Urine Blood Negative /uL (Negative) Urine Nitrite Negative (Negative) Urine Bilirubin Negative (Negative) Urine Urobilinogen Normal mg/dL (Negative) Urine Leukocyte Esterase Negative /uL (Negative) Urine RBC 1 /hpf (0 - 3) Urine Microscopic WBC 2 /HPF (0-3) Urine Squamous Epithelial Cells Few /hpf (<5) Urine Bacteria None seen /hpf (None Seen) Urine Hyaline Casts Mod /lpf (0 - 2) Urine Mucus Few (None Seen) Urine Glucose Normal mg/dL (Normal) Urine Opiates Screen Neg (NEGATIVE) Urine Fentanyl Screen Neg (NEGATIVE) Urine Barbiturates Screen Neg (NEGATIVE) Urine Phencyclidine Screen Neg (NEGATIVE) Urine Amphetamines Screen Neg (NEGATIVE) Urine Benzodiazepines Screen Neg (NEGATIVE) Urine Cocaine Screen Neg (NEGATIVE) Urine Cannabinoids Screen Neg (NEGATIVE) Lactic Acid Level 1.1 mmol/L (0.4-2.0) Magnesium Level 1.9 mg/dL (1.6-2.6) B-Type Natriuretic Peptide 55.92 pg/mL (0-100) Thyroid Stimulating Hormone (TSH) 1.53 uIU/mL (0.55-4.78) Other Laboratory Tests 08/27/24 05:00 08/25/24 05:57 Brief Hx & Hospital Course: History of Present Illness Patient is a 48-year-old male with a past medical history of paroxysmal atrial fibrillation, narcolepsy presented to the ED with a chief complaint of chest pain for the last 2 days. Patient reported substernal to left-sided chest pain with the associated numbness in his hands, palpitations on and off and also reported mild shortness of breath. Patient takes metoprolol succinate 25 mg daily for his atrial fibrillation but is not on any anticoagulation and follows up with primary independent distributor and EP independent distributor down the [place]. Patient reported he had a stress test about 2 years ago and never had a coronary angiogram done. Patient also reported a with generalized weakness with difficulty moving around and having dizziness, also reported blurred vision for a few minutes 2 days ago which resolved on its own. Course of hospitalization: Patient was found to have negative troponins x3. EKG without any acute changes. Cardiology consultation was obtained. Given patient has persistent palpitations chest pain, patient was taken for left heart catheterization today. Patient had normal coronary artery anatomy. No intervention was performed. Reviewing the patient's past 24 hours with of telemetry monitoring, found no periods of atrial fibrillation or other dysrhythmias. Patient was noted to have some bradycardia. The patient was states that he was an appointment with outpatient [facility] [employer] as well as his primary independent distributor in the next 2-3 weeks. Patient will continue his previous home medications including beta-gracia therapy. Questions answered. Physical examination General: Alert and Oriented x3. No acute distress. Well-nourished. Eyes: EOMI. Anicteric. HENT: Moist mucous membranes. Lungs: Clear to auscultation bilaterally. No accessory muscle use. Cardiovascular: Regular rate and rhythm. No murmur. No JVD. Abdomen: Soft, non-tender and non-distended. No palpable masses. Extremities: No edema. Non-tender. Skin: No rashes or lesions. Warm. Neurologic: No focal neurological deficits. CN II-XII grossly intact, but not individually tested. Psychiatric: Cooperative. Appropriate mood and affect. Total time spent with patient discussing and formulating plan of care: 35 minutes. This medical document was created using an electronic medical record system with [employer] dictation system. Although this document has been carefully reviewed, there may still be some phonetic and typographical errors. These areas are purely typographical due to imperfections of the software programs, and do not reflect any compromise in the patient's medical care. Condition at Discharge: Fair Final Diagnosis/Problems List CHEST PAIN, PROBABLY DUE TO CARDIAC DYSRHYTHMIA Secondary diagnosis: -paroxysmal atrial fibrillation Discharge Disposition: Home Discharge Instruct/Medications Diet: Regular Activity: No Restrictions, As Tolerated Follow Up/Referral: Primary independent distributor and [facility] [employer] at next available appointment Medications: continue all home medications. 36 Discharge Statement: "Patient was advised to return to the ER or call 911 if any headaches, dizziness, shortness of breath, chest pain, abdominal pain, bleeding, fevers, or worsening of medical condition. Patient was counseled about treatment plan, medications, possible side effects, patientverbalized understanding. All questions were answered to the best of my ability. This discharge took greater then 30 minutes in planning, reviewing documentation, counseling the patient, and discussing with other team members." ASSESSMENT ASSESSMENT Assessment CHEST PAIN, PROBABLY DUE TO CARDIAC DYSRHYTHMIA Date of Service: Aug 27, 2024 Billing Provider: CHIKI RIVERA NP Common Visit Codes: 10675-MDG/OBS DISCH DAY >30min CHIKI RIVERA NP Aug 27, 2024 14:49
--- NOTE | 2024-08-27 21:54 | DVHPN2 ---
Progress Note - Dictate Date Seen: Aug 27, 2024 Medical Necessity Reason Pt with a Central, PICC or Fol: No Subjective Patient was seen and evaluated in follow up. Patient underwent left heart cath, [place] selective left and right coronary artery angiography. There is no evidence of any occlusive coronary artery disease. Ejection fraction 60%. Patient is cardiac stable for discharge. Telemetry reviewed. vital signs Vital Sign Date Time Temp Pulse Resp B/P (MAP) Pulse Ox O2 Delivery O2 Flow Rate FiO2 08/27/24 12:50 98.3 60 18 108/77 (87) 99 98.3 08/27/24 08:00 Room Air* 0 21 Total Intake and Output 08/26/24 08/26/24 08/27/24 15:00 23:00 07:00 Intake Total 240 ml 1120 ml 700 ml Balance 240 ml 1120 ml 700 ml objective GENERAL: Alert and oriented x 3. No acute distress. EYES: PERRL, EOMI. Anicteric. HENT: Moist mucous membranes. LUNGS: Clear to auscultation bilaterally. CARDIOVASCULAR: Regular rate and rhythm. ABDOMEN: Soft, non-tender and non-distended. EXTREMITIES: No edema. NEUROLOGIC: No focal neurological deficits. SKIN: Warm, dry. laboratory and microbiology Laboratory Tests 08/27/24 05:00 08/25/24 05:57 Test 08/27/24 05:00 Range/Units Serum Glucose 88 74-106 mg/dL Problem List Paroxysmal AFib, possible tachy-rick syndrome. Chest pain. Obstructive sleep apnea. Assessment/Plan Continued all current supportive medical care. Aspirin. Morphine for pain. Additional plan as per the hospital course. Plan discussed with: Patient RANDALL CLEMONS MD Aug 27, 2024 21:54
== END 2024-08-27 15:45 | disposition home or self-care (01) | DRG 287 ==
LOC: ER 15:15 → OVERFLOW 23:18 → TELE-WESTW 08-25 15:39
PROVIDERS: ADMIT Nurse Practitioner Acute Care; ATTEND Nurse Practitioner Acute Care
PROC: 4A023N7 Measurement of Cardiac Sampling and Pressure, Left Heart, Percutaneous Approach (ICD-10-PCS; principal; 2024-08-27)
PROC: B211YZZ Fluoroscopy of Multiple Coronary Arteries using Other Contrast (ICD-10-PCS; 2024-08-27)
PROC: B215YZZ Fluoroscopy of Left Heart using Other Contrast (ICD-10-PCS; 2024-08-27)
DX: I49.9 Cardiac arrhythmia, unspecified (principal); E87.20 Acidosis, unspecified; I48.0 Paroxysmal atrial fibrillation; E86.0 Dehydration; Z20.822 Contact with and (suspected) exposure to COVID-19; G47.33 Obstructive sleep apnea (adult) (pediatric); E66.9 Obesity, unspecified; Z88.0 Allergy status to penicillin; Z79.899 Other long term (current) drug therapy; Z68.27 Body mass index [BMI] 27.0-27.9, adult
CPT/HCPCS: 36415; 70450; 71045; 80048; 80053; 80061; 80307; 81001; 83605; 83735; 83880; 84443; 84484; 85025; 85610; 85730; 86850; 86900; 86901; 87426; 87804; 93005; 93306; 93458; 93886; 96365; 96375; 99152; G0378; J2250; Q9967

== ENCOUNTER 2024-09-02 00:37 | Inpatient (IN) | payer OTHER, MEDICAID ==
[~2024-09-02] VITALS: Ht 195.6 cm; Wt 104.0 kg
[~2024-09-02 00:37] MED LIST changes: +METO25TA36 PO; +NITR0.4S29 SL; +PANT40TA2 PO
[2024-09-02] MEDS: HYDROcodone-ACET 5/325MG TAB PO ONE (01:00)
--- NOTE | 2024-09-02 01:13 | ED.PDOC ---
Back pain HPI HPI Comments pt has afib, was admitted on 08/24 for chest pain. had angiogram on tuesday via the right wrist. however, by , he was experiencing left groin pain that radiated down the left leg. per chart review, he has had right lumbar radiculopathy radiating down the right leg in the past Chief Complaint: Lower Extremity Time Seen by MD: 00:49 Primary Care Provider: UNKN Allergies: Coded Allergies: Penicillins (Verified Allergy, Unknown, 04/16/19) Home Meds Active Scripts Hydrocodone-Acetaminophen (Hydrocodone Bitartrate/AC 10-325 mg) 1 Tab Tab, 1 TAB PO Q6HPRN PRN, #30 TAB Prov:LAMINE HOSKINS DO 11/01/21 Tramadol Hcl (Ultram) 50 Mg Tab, 1 TAB PO Q6HR, #30 TAB Prov:ARNOLDO ROD MD 04/22/21 Reported Medications Nitroglycerin (Nitrostat) 0.4 Mg Sub, 0.4 MG SL, INJ 08/25/24 Pantoprazole Sodium Sesquihydr (Protonix) 40 Mg Tab, 40 MG PO DAILY, #30 TAB 08/25/24 Metoprolol Succinate (Toprol Xl) 25 Mg Tab, 1 TAB PO DAILY, #30 TAB 5 Refills 08/25/24 Information Source: Patient Mode of Arrival: Ambulatory Timing: Days Duration: Since onset Radiates to: Anterior: (R) Calf, (R) Foot, (R) Thigh Severity: Moderate Quality: Aching Onset: Spontaneous History of: None Modifying Factors: Nothing Associated signs and symptoms: None Past Medical History PAST MEDICAL HISTORY: AFIB, Depression Past Medical History (Other): right radiculopathy, right eye retinal injury Surgical History (Other): angiogram, right eye surgery Family History Family History: No family hx of Cancer, No family hx of DM, No family hx of Heart etelvina, No family hx of HTN, No family hx ofKidney etelvina, No family hx of Liver etelvina, No family hx of Lung etelvina, No family hx of Stroke Social History Smoker: Non-Smoker Alcohol: Occasionally Drugs: Denies Drug Use Lives In: Home Constitutional: denies: chills, diaphoresis, fatigue, fever, malaise, sweats, weakness, others EENTM: denies: blurred vision, double vision, ear bleeding, ear discharge, ear drainage, ear pain, ear ringing, eye pain, eye redness, hearing loss, mouth pain, mouth swelling, nasal discharge, nose bleeding, nose congestion, nose pain, photophobia, tearing, throat pain, throat swelling, voice changes, others Respiratory: denies: cough, hemoptysis, orthopnea, SOB at rest, shortness of breath, SOB with excertion, stridor, wheezing, others Cardiovascular: denies: chest pain, dizzy spells, diaphoresis, Dyspnea on exertion, edema, irregular heart beat, left arm pain, lightheadedness, palpitations, PND, syncope, others Gastrointestinal: denies: abdomen distended, abdominal pain, blood streaked bowels, constipated, diarrhea, dysphagia, difficulty swallowing, hematemesis, melena, nausea, poor appetite, poor fluid intake, rectal bleeding, rectal pain, vomiting, others Genitourinary: denies: burning, dysuria, flank pain, frequency, hematuria, incontinence, penile discharge, penile sore, pain, testicle pain, testicle swelling, urgency, others Neurological: denies: dizziness, fainting, headache, left sided numbness, left sided weakness, numbness, paresthesia, pre-existing deficit, right sided numbness, right sided weakness, seizure, speech problems, tingling, tremors, weakness, others Musculoskeletal: reports: muscle pain (right leg pain); denies: back pain, gout, joint pain, joint swelling, muscle stiffness, neck pain, others Integumetry: denies: bruises, change in color, change in hair/nails, dryness, laceration, lesions, lumps, rash, wounds, others Hematologic/Lymphatic: denies: anemia, blood clots, easy bleeding, easy bruising, swollen glands, others Endocrine: denies: excessive hunger, excessive sweating, excessive thirst, excessive urination, flushing, intolerance to cold, intolerance to heat, unexplained weight gain, unexplained weight loss, others Psychiatric: denies: anxiety, bipolar disorder, depression, hopeless, panic disorder, schizophrenia, sleepless, suicidal, others All Other Systems: Reviewed and Negative Physical Exam General Appearance: No Apparent Distress, Normal HEENT: Normal ENT Inspection, Pharynx Normal, TMs Normal Neck: Full Range of Motion, Non-Tender, Normal, Normal Inspection Respiratory: Chest Non-Tender, Lungs Clear, No Accessory Muscle Use, No Resp iratory Distress, Normal Breath Sounds Cardiovascular: No Edema, No JVD, No Murmur, No Gallop, Normal Peripheral Pulses, Regular Rate/Rhythm Breast Exam: Deferred Gastrointestinal: No Organomegaly, Non Tender, No Pulsatile Mass, Normal Bowel Sounds, Soft Genitalia: Normal Pelvic: Deferred Rectal: Deferred Extremities: Calf tenderness, Normal capillary refill, Normal inspection, Normal range of motion, Non-tender, No pedal edema Musculoskeletal : Apperance: Normal Neurologic: Alert, 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 Was a procedure done?: No Back Pain Differential Dx Differential Diagnosis: Other (dvt, femoral hernia, radiculopathy, strain, sprain) X-Ray, Labs, Meds, VS Vital Signs Date Time Temp Pulse Resp B/P (MAP) Pulse Ox O2 Delivery O2 Flow Rate FiO2 09/02/24 01:07 98.3 75 20 131/94 (106) 97 98.3 Lab Test 09/02/24 01:58 Range/Units White Blood Count Pending Red Blood Count Pending Hemoglobin Pending Hematocrit Pending Mean Corpuscular Volume Pending Mean Corpuscular Hemoglobin Pending Mean Corpuscular Hemoglobin Concent Pending Red Cell Distribution Width Pending Platelet Count Pending Mean Platelet Volume Pending Neutrophils (%) (Auto) Pending Lymphocytes (%) (Auto) Pending Monocytes (%) (Auto) Pending Basophils (%) (Auto) Pending Neutrophils # (Auto) Pending Lymphocytes # (Auto) Pending Monocytes # (Auto) Pending Prothrombin Time Pending Prothrombin Time INR Pending Activated Partial Thromboplast Time Pending Time of 1ST Reevaluation: 01:55 Reevaluation 1ST: Unchanged Patient Education/Counseling: Diagnosis, Treatment, Prognosis, Need For Follow Up Family Education/Counseling: No Family Present Comments pt has a DVT of the left popliteal art. he will be placed on heparin. pt reports that he is not on any blood thinner, not even aspirin for his intermittent afib. he will need to be admitted for vascular or IR consult for thrombectomy evaluation to minimize post thrombotic syndrome SEPSIS Sepsis Screen Physician Orders Lt Lower Dvt (09/02/24 01:00) Platelet Monitoring (09/02/24 01:50) Vte Protocol Initiated (09/02/24 01:50) Heparin Per Standardized Proce (09/02/24 01:50) Discontinue All Im Injections (09/02/24 01:50) PTPTT (09/02/24 01:50) Complete Blood Count (09/02/24 01:50) Heparin Sodium (Porcine) (09/02/24 02:00) Heparin Drip/D5w 100units/Ml (09/02/24 02:00) Vital Signs Date Time Temp Pulse Resp B/P (MAP) Pulse Ox O2 Delivery O2 Flow Rate FiO2 09/02/24 01:07 98.3 75 20 131/94 (106) 97 98.3 Laboratory Tests Test 09/02/24 01:58 White Blood Count Pending Departure 1 Departure Time of Disposition: 01:57 Impression: Primary Impression: DVT (deep venous thrombosis) Qualified Codes: I82.432 - Acute embolism and thrombosis of left popliteal vein Disposition: ADMITTED INPATIENT Admit to: Med Surg Condition: Serious Discharged With: Self Critical Care Note Critical Care Time?: No Stability Stability form required: No JI CHAIREZ MD Sep 02, 2024 01:13
[2024-09-02] MEDS: HEPARIN SODIUM (PORCINE) 5000 UNITS/ML 1ML VIAL IV ONE (02:00)
[2024-09-02 02:10] LABS: Hematocrit 40.2 % (41.0-53.0); Hemoglobin 14.0 g/dL (13.5-17.5); Mean Corpuscular Hemoglobin 30.0 pg (28.0-32.0); Mean Corpuscular Volume 86.5 fL (80.0-100.0); Nucleated Red Blood Cells % 0.1 %
[2024-09-02 02:11] VITALS: PULSE 78; RESP 18; O2SAT 97
--- NOTE | 2024-09-02 02:18 | DVH ---
Left lower extremity venous duplex Clinical History: left leg pain Comparison: None Technique: Duplex Doppler evaluation of the deep venous system of the left lower extremity from the common femor al vein to the popliteal vein including color Doppler and spectral/pulsed waveform analysis was perfo rmed. Findings: The common femoral vein demonstrates appropriate compressibility and waveform variability. There is compressibility/patency of the great saphenous vein at the proximal thigh. The femoral vein demonstrates appropriate compressibility and waveform variability. The deep femoral vein demonstrates appropriate compressibility and waveform variability. The popliteal vein, trifurcation and posterior tibial vein are absent of normal flow, compression and augmentation. Impression: 1. Occlusive thrombus extending from the left popliteal vein to the posterior tibial vein.
[2024-09-02 02:26] LABS: INR 0.96 (0.9-1.15); Partial Thromboplastin Time 26.3 SEC (24.5-34.5); Prothrombin Time 10.2 sec (9.3-11.8)
[2024-09-02] MEDS: HEPARIN DRIP/D5W 100UNITS/ML 250 ML IV SCH ×3 (03:05→19:08)
[2024-09-02] MEDS ORDERED: ONDANSETRON HCL 4 MG/2 ML VIAL IV PRN (05:00)
[2024-09-02] MEDS ORDERED: DOCUSATE SOD 100 MG CAP PO PRN (05:00)
[2024-09-02] MEDS ORDERED: MORPHINE SULFATE INJ 2 MG/ml SYRG IV PRN (05:00)
[2024-09-02] MEDS ORDERED: NITROGLYCERIN 0.4 MG SL TAB SL PRN (05:00)
[2024-09-02] MEDS: SODIUM CHLORIDE 0.9% 1,000 ML IV SCH (05:00)
--- NOTE | 2024-09-02 05:03 | DVHHP2 ---
History of Present Illness Reason for Visit: DVT (deep venous thrombosis) History of Present Illness The patient is a 48-year-old male with past medical history of depression, AFib, right radiculopathy, and right eye retinal injury presented to [facility] ED with complaint of left leg pain. Patient reports he has been experiencing left groin pain radiating down to his left leg, chest pain, getting worse that prompted this visit. Patient was seen and evaluated in the ED, laboratory data shows WBC 9.4, platelets 202, blood pressure 116/83, heart rate 70, temperature 98.1 F, O2 saturation 98% on room air. Extremity venous study revealing occlusive thrombus extending from the left popliteal vein to the posterior tibial vein. Patient was started on heparin drip, please see medication orders section in the computer. On my assessment, patient denies chest pain, no headache, no dizziness, no diaphoresis, no shortness of breath, no nausea, no vomiting, no fever, no chills. Patient was admitted for further evaluation and medical management. Past Medical History AFIB, Depression, Right radiculopathy, Right eye retinal injury Past Surgical History Angiogram, Right eye surgery Family History Reviewed, noncontributory to the management of this case. Past Social History The patient lives at home, denies smoking, alcohol or illicit drugs abuse. Review of Systems Constitutional: No: Fever, Chills, Sweats, Weakness, Malaise, Other Eyes: No: Pain, Vision change, Conjunctivae inflammation, Eyelid inflammation, Other, Redness ENT: No: Ear pain, Ear discharge, Nose pain, Nose discharge, Nose congestion, Mouth pain, Mouth swelling, Throat pain, Throat swelling, Other Respiratory: No: Cough, Dry, Shortness of breath, SOB with excertion, Wheezing, Hemoptysis, Pleuritic Pain, Sputum, Wheezing, Other Cardiovascular: No: Chest Pain, Palpitations, Orthopnea, Paroxysmal Noc. Dyspnea, Edema, Lt Headedness, Other Gastrointestinal: No: Nausea, Vomiting, Abdominal Pain, Diarrhea, Constipation, Melena, Hematochezia, Other Genitourinary: No Dysuria, No Frequency, No Incontinence, No Hematuria, No Retention, No Other Musculoskeletal: other (Muscle pain), leg pain (Left leg); No: neck pain, shoulder pain, arm pain, back pain, hand pain, foot pain Skin: No: Rash, Lesions, Jaundice, Bruising, Other Neurological: No: Weakness, Numbness, Incoordination, Change in speech, Confusion, Seizures, Other Allergies: Coded Allergies: Penicillins (Verified Allergy, Unknown, 04/16/19) Medications Current Medications Medications Dose Ordered Sig/Meli Route Start Time Stop Time Status Last Admin Dose Admin Heparin Sodium/ Dextrose 250 ml @ 20 mls/hr [id number] IV 09/02/24 03:00 09/02/24 03:05 20 MLS/HR Exam Vital Signs Vital Signs Date Time Temp Pulse Resp B/P (MAP) Pulse Ox O2 Delivery O2 Flow Rate FiO2 09/02/24 03:42 98.1 70 18 116/83 (94) 98 98.1 09/02/24 02:11 Room Air* 0 21 General Appearance: Alert, Oriented X3, Cooperative, No acute distress HEENT: Atraumatic, PERRLA, EOMI, Mucous membr. moist/pink Respiratory: Clear to auscultation, Normal air movement Cardiovascular: Regular rate, Normal S1, Normal S2, No murmurs Abdominal: Normal bowel sounds, Soft, No tenderness, No hepatospenomegaly, No masses Extremities: No clubbing, No cyanosis, No edema, Normal pulses, Other (Left leg tenderness) Skin: No rashes, No breakdown, No significant lesion Neuro: Normal gait, Normal speech, Strength at 5/5 X4 ext, Normal tone, Sensation intact, Cranial nerves 3-12 NL, Reflexes 2+ Psych/Mental Status: Mental status NL, Mood NL Labs/Xrays Labs Test 09/02/24 01:58 Range/Units White Blood Count 9.4 4.4-10.8 10^3/uL Red Blood Count 4.65 4.5-5.90 10^6/uL Hemoglobin 14.0 13.5-17.5 g/dL Hematocrit 40.2 L 41.0-53.0 % Mean Corpuscular Volume 86.5 80.0-100.0 fL Mean Corpuscular Hemoglobin 30.0 28.0-32.0 pg Mean Corpuscular Hemoglobin Concent 34.7 32.0-36.0 g/dL Red Cell Distribution Width 12.9 11.8-14.3 % Platelet Count 202 140-450 10^3/uL Mean Platelet Volume 8.3 6.9-10.8 fL Neutrophils (%) (Auto) 52.8 37.0-80.0 % Lymphocytes (%) (Auto) 28.7 10.0-50.0 % Monocytes (%) (Auto) 10.0 0.0-12.0 % Eosinophils (%) (Auto) 7.4 H 0.0-7.0 % Basophils (%) (Auto) 1.1 0.0-2.0 % Neutrophils # (Auto) 5.0 1.6-8.6 10 ^3/uL Lymphocytes # (Auto) 2.7 0.4-5.4 10 ^3/uL Monocytes # (Auto) 0.9 0-1.3 10 ^3/uL Eosinophils # (Auto) 0.7 0-0.8 10 ^3/uL Basophils # (Auto) 0.1 0-0.2 10 ^3/uL Nucleated Red Blood Cells 0.1 % Prothrombin Time 10.2 9.3-11.8 sec Prothrombin Time INR 0.96 0.9-1.15 Activated Partial Thromboplast Time 26.3 24.5-34.5 SEC PATIENT: GE BAH ACCT: [id number] UNIT: [id number] : 1975 LOC: ER ROOM / BED: / AGE / SEX: 48 / M ADM STATUS: REG ER SERVICE 0100 ORDERING PHYSICIAN: JI CHAIREZ MD PROCEDURE(s): LLDVT - LT Lower DVT REASON: left leg pain ORDER NUMBER(s): [id number], ACCESSION NUMBER(s): [id number] Left lower extremity venous duplex Clinical History: left leg pain Comparison: None Technique: Duplex Doppler evaluation of the deep venous system of the left lower extremity from the common femoral vein to the popliteal vein including color Doppler and spectral/pulsed waveform analysis was performed. Findings: The common femoral vein demonstrates appropriate compressibility and waveform variability. There is compressibility/patency of the great saphenous vein at the proximal t high. The femoral vein demonstrates appropriate compressibility and waveform variability. The deep femoral vein demonstrates appropriate compressibility and waveform variability. The popliteal vein, trifurcation and posterior tibial vein are absent of normal flow, compression and augmentation. Impression: 1. Occlusive thrombus extending from the left popliteal vein to the posterior tibial vein. Assessment/Plan Assessment/Plan DVT (deep venous thrombosis) Acute embolism and thrombosis of left popliteal vein Plan 1. Admit to telemetry unit 2. Breathing treatment 3. Pain control management 4. Management of fluids and electrolytes 5. Consultation for hospitalist 6. Diagnostic tests extremity venous study 7. DVT prophylaxis-on heparin drip 8. Repeat labs CBC, CMP in a.m. 9. Continue with current medical management 10. Treatment plan discussed with patient and RN. Patient verbalized understanding. Plan discussed with: Patient, Other (RN) My Orders Orders - GUCCI GUAMAN DNP Procedure Category Date Status Time Complete Blood Count LAB 09/02/24 Transmitted 04:48 Comprehensive LAB 09/02/24 Transmitted Metabolic Panel 04:48 Metoprolol Tartrate PHA 09/02/24 Transmitted Tablet (Lopressor Ta 10:00 Pantoprazole PHA 09/02/24 Transmitted (Protonix) 10:00 Admit ADMIT 09/02/24 Transmitted 04:48 Allergies KATELIN 09/02/24 Transmitted 04:48 Code Status CODE 09/02/24 Transmitted 04:48 0.9% Ns 1000 Ml PHA 09/02/24 Transmitted 05:00 Oxygen Per Hour RT 09/02/24 Transmitted 04:48 Hydrocodone-Acet PHA 09/02/24 Transmitted 5/325mg Tab ([place] 05:00 Ondansetron Hcl PHA 09/02/24 Transmitted (Zofran) 05:00 Docusate Sodium PHA 09/02/24 Transmitted Capsule (Colace 05:00 Fall Risk Precautions KATELIN 09/02/[address] 04:48 Complete Blood Count LAB 09/03/24 Verified 04:00 Comprehensive LAB 09/03/24 Verified Metabolic Panel 04:00 Cardiac DIET 09/02/24 Transmitted Diet-2gna,Lofat,Lochol Breakfast Condition: Serious KATELIN 09/02/24 Transmitted 04:48 Acetaminophen Tablet PHA 09/02/24 Transmitted (Tylenol Tablet) 05:00 Maintain Bed Rest KATELIN 09/02/24 Transmitted 04:48 Nitroglycerin PHA 09/02/24 Transmitted Sublingual (Ntrostat 05:00 Morphine Sulfate PHA 09/02/24 Transmitted Injection 05:00 Stat Ekg For Chest KATELIN 09/02/24 Transmitted Pain 04:48 Notify Md Of Changes KATELIN 09/02/24 Transmitted From Base 04:48 Housekeeping Lead For [facility] 09/02/24 Verified 24 Hours 04:48 Emergency Dysrhythmia [facility] 09/02/24 Verified Protocol 04:48 Rhythm Strips Once [facility] 09/02/24 Verified Every Shift 04:48 Oxygen By Nasal RT 09/02/24 Verified Cannula 04:48 Problem List: (1) DVT (deep venous thrombosis) (2) Acute embolism and thrombosis of left popliteal vein Date of Service: Sep 02, 2024 Billing Provider: GUCCI GUAMAN DNP Common Visit Codes: [id number] INP/OBS CARE (HIGH) GUCCI GUAMAN DNP Sep 02, 2024 05:03
[2024-09-02 05:24] LABS: Hematocrit 40.1 % (41.0-53.0); Hemoglobin 13.7 g/dL (13.5-17.5); Mean Corpuscular Hemoglobin 29.7 pg (28.0-32.0); Mean Corpuscular Volume 87.1 fL (80.0-100.0); Nucleated Red Blood Cells % 0.0 %
[2024-09-02 06:04] LABS: Alanine Aminotransferase 31 U/L (7-40); Albumin 4.2 g/dL (3.2-4.8); Alkaline Phosphatase 60 U/L (46-116); Anion Gap 9 (5-15); BUN/Creatinine Ratio 11.4 (10.0-20.0); Bilirubin, Total 0.9 mg/dL (0.2-1.0); Blood Urea Nitrogen 9 mg/dL (9-23); Calcium 10.0 mg/dL (8.7-10.4); Carbon Dioxide 27 mmol/L (20-31); Chloride 104 mmol/L (98-107); Glucose 101 mg/dL (74-106); Potassium 4.2 mmol/L (3.5-5.1); Sodium 140 mmol/L (136-145); Total Protein 6.6 g/dL (5.7-8.2)
[2024-09-02 07:30] VITALS: PULSE 62; PULSE 91; RESP 16; O2SAT 95; O2SAT 98
[2024-09-02 09:48] LABS: INR 1.01 (0.9-1.15); Prothrombin Time 10.7 sec (9.3-11.8)
[2024-09-02 09:52] LABS: Partial Thromboplastin Time 131.2 SEC (24.5-34.5)
[2024-09-02] MEDS: PANTOPRAZOLE 40 MG/10 ML VIAL INJ IV SCH (10:23)
[2024-09-02] MEDS: METOPROLOL TARTRATE 25 MG TAB PO SCH (10:25)
--- NOTE | 2024-09-02 10:28 | CONS ---
Pharmacy Clinical Information: HEPARIN DRIP aPTT = 131.2 HOLD DRIP FOR 1 HR RESUME DRIP @1100 AT NEW RATE 1700 UNITS/HR (17 ML/HR) NEXT aPTT SCHEDULED @1700 COMMUNICATED WITH NEEMA CUMMINGS PHARMACIST Sep 02, 2024 10:28
--- NOTE | 2024-09-02 12:50 | DVHPN2 ---
Reviewed: Care Plan, H&P, Labs, Medications, Previous Orders, Radiology Changes from previous H/P or p: No Changes Eyes: No Pain, No Vision change, No Conjunctivae inflammation, No Eyelid inflammation, No Other, No Redness ENT: No Ear pain, No Ear discharge, No Nose pain, No Nose discharge, No Nose congestion, No Mouth pain, No Mouth swelling, No Throat pain, No Throat swelling, No Other Cardiovascular: No Chest Pain, No Palpitations, No Orthopnea, No Paroxysmal Noc. Dyspnea, No Edema, No Lt Headedness, No Other Respiratory: No Cough, No Dry, No Shortness of breath, No SOB with excertion, No Wheezing, No Hemoptysis, No Pleuritic Pain, No Sputum, No Other Gastrointestinal: No Nausea, No Vomiting, No Abdominal Pain, No Diarrhea, No Constipation, No Melena, No Hematochezia, No Other Genitourinary: No Dysuria, No Frequency, No Incontinence, No Hematuria, No Retention, No Other Musculoskeletal: other (Muscle pain); No neck pain, No shoulder pain, No arm pain, No back pain, No hand pain; leg pain (Left leg); No foot pain Skin: No Rash, No Lesions, No Jaundice, No Bruising, No Other Objective Vitals Vital Signs Date Time Temp Pulse Resp B/P (MAP) Pulse Ox O2 Delivery O2 Flow Rate FiO2 09/02/24 12:29 56 104/74 09/02/24 07:30 97.1 16 98 97.1 09/02/24 07:30 Room Air* 0 21 Medications Current Medications Medications Dose Ordered Sig/Meli Route Start Time Stop Time Status Last Admin Dose Admin Metoprolol Tartrate 25 mg BID PO 09/02/24 10:00 09/02/24 10:25 25 MG Pantoprazole Sodium 40 mg DAILY IV 09/02/24 10:00 09/02/24 10:23 40 MG Sodium Chloride 1,000 ml @ 60 mls/hr [id number] IV 09/02/24 05:00 09/02/24 06:28 60 MLS/HR Acetaminophen/ Hydrocodone Bitart 1 tab Q4HP PRN PO 09/02/24 05:00 Ondansetron HCl 4 mg Q4HP PRN IV 09/02/24 05:00 Docusate Sodium 100 mg BIDPRN PRN PO 09/02/24 05:00 Acetaminophen 650 mg Q6HP PRN PO 09/02/24 05:00 Nitroglycerin 0.4 mg Q5MINP PRN SL 09/02/24 05:00 Morphine Sulfate 2 mg Q30M PRN IV 09/02/24 05:00 Heparin Sodium/ Dextrose 250 ml @ 17 mls/hr [id number] IV 09/02/24 11:00 09/02/24 11:13 17 MLS/HR Laboratory Results Laboratory Tests 09/02/24 05:08 Chemistry Test 09/02/24 05:08 Albumin 4.2 g/dL (3.2-4.8) Calcium Level 10.0 mg/dL (8.7-10.4) Total Protein 6.6 g/dL (5.7-8.2) Coagulation Test 09/02/24 01:58 09/02/24 09:04 Prothrombin Time 10.2 sec (9.3-11.8) 10.7 sec (9.3-11.8) Prothrombin Time INR 0.96 (0.9-1.15) 1.01 (0.9-1.15) Activated Partial Thromboplast Time 26.3 SEC (24.5-34.5) 131.2 SEC (24.5-34.5) *H LFT Test 09/02/24 05:08 Alanine Aminotransferase (ALT) 31 U/L (7-40) Alkaline Phosphatase 60 U/L (46-116) Aspartate Amino Transferase (AST) 33 U/L (<34) Total Bilirubin 0.9 mg/dL (0.2-1.0) Labs and/or images reviewed: Labs reviewed by me, Image(s) reviewed by me Assessment/Plan Assessment/Plan DVT left lower extremity: Heparin per protocol cardiology consult for Dr. Kenyon Acute left lower extremity pain secondary to DVT History of atrial fibrillation Hypertension: Metoprolol Plan discussed with: Patient Date of Service: Sep 02, 2024 Billing Provider: BEAN LARA MD Common Visit Codes: [id number] INP/OBS CARE(HIGH) BEAN LARA MD Sep 02, 2024 12:50
[2024-09-02 17:52] LABS: INR 1.01 (0.9-1.15); Prothrombin Time 10.7 sec (9.3-11.8)
[2024-09-02 17:54] LABS: Partial Thromboplastin Time 91.2 SEC (24.5-34.5)
--- NOTE | 2024-09-02 18:50 | CONS ---
Pharmacy Clinical Information: HEPARIN DRIP aPTT 91.2 HOLD FOR 1 HR FROM 1800 TO 1900 OLD RATE 1700 UNITS/ML NEW RATE @1900 HOURS AT RATE 1400UNITS/HR NEXT aPTT 09/03 @0100 COMMUNICATED WITH NEEMA CUMMINGS PHARMACIST Sep 02, 2024 18:49
[2024-09-02 21:55] VITALS: BP 124/85; PULSE 67; RESP 18; TEMP 97.6; O2SAT 100
--- NOTE | 2024-09-02 23:59 | DVHINCON2 ---
Date of service: Sep 02, 2024 Referring Physician Brennan Reason for Consultation LLE DVT History of Present Illness This is a 48-year-old male with a past medical history of depression, AFib, right radiculopathy, and right eye retinal injury presented to the ED with a complaints of left leg pain. Patient reports he has been experiencing left groin pain radiating down to his left leg, chest pain, getting worse that prompted this visit. Patient had angiogram on Tuesday via the right wrist. Left lower extremity venous duplex revealed occlusive thrombus extending from the left popliteal vein to the posterior tibial vein. Patient was admitted to the hospital. I am asked to consult on this patient. Family History: Patient reports no known family medical history. Allergies: Coded Allergies: Penicillins (Verified Allergy, Unknown, 04/16/19) Home Meds Reported Medications Nitroglycerin (Nitrostat) 0.4 Mg Sub, 0.4 MG SL, INJ 08/25/24 Pantoprazole Sodium Sesquihydr (Protonix) 40 Mg Tab, 40 MG PO DAILY, #30 TAB 08/25/24 Metoprolol Succinate (Toprol Xl) 25 Mg Tab, 1 TAB PO DAILY, #30 TAB 5 Refills 08/25/24 Current Medications Current Medications Medications (Trade) Dose Ordered Sig/Meli Route PRN Reason Start Time Stop Time Status Last Admin Heparin Sodium/ Dextrose 250 ml @ 20 mls/hr [id number] IV 09/02/24 03:00 09/02/24 10:20 DC 09/02/24 03:05 Metoprolol Tartrate (Lopressor Tablet) 25 mg BID PO 09/02/24 10:00 09/02/24 10:25 Pantoprazole Sodium (Protonix) 40 mg DAILY IV 09/02/24 10:00 09/02/24 10:23 Sodium Chloride 1,000 ml @ 60 mls/hr [id number] IV 09/02/24 05:00 09/02/24 06:28 Acetaminophen/ Hydrocodone Bitart ([place] 5/325MG Tab) 1 tab Q4HP PRN PO MODERATE PAIN (4-6 PAIN SCALE) 09/02/24 05:00 Ondansetron HCl (Zofran) 4 mg Q4HP PRN IV NAUSEA / VOMITING 09/02/24 05:00 Docusate Sodium (Colace Capsule) 100 mg BIDPRN PRN PO FOR CONSTIPATION 09/02/24 05:00 Acetaminophen (Tylenol Tablet) 650 mg Q6HP PRN PO PAIN SCALE 1-3 OR TEMP>100.4 09/02/24 05:00 Nitroglycerin (Ntrostat Sublingual) 0.4 mg Q5MINP PRN SL FOR CHEST PAIN 09/02/24 05:00 Morphine Sulfate 2 mg Q30M PRN IV FOR CHEST PAIN 09/02/24 05:00 Heparin Sodium/ Dextrose 250 ml @ 17 mls/hr [id number] IV 09/02/24 11:00 09/02/24 18:43 DC 09/02/24 11:13 Heparin Sodium/ Dextrose 250 ml @ 14 mls/hr [id number] IV 09/02/24 19:00 09/02/24 19:08 Review of Systems Constitutional: denies: chills, diaphoresis, fatigue, fever, malaise, sweats, weakness, others EENTM: denies: blurred vision, double vision, ear bleeding, ear discharge, ear drainage, ear pain, ear ringing, eye pain, eye redness, hearing loss, mouth pain, mouth swelling, nasal discharge, nose bleeding, nose congestion, nose pain, photophobia, tearing, throat pain, throat swelling, voice changes, others Respiratory: denies: cough, hemoptysis, orthopnea, SOB at rest, shortness of breath, SOB with excertion, stridor, wheezing, others Cardiovascular: denies: chest pain, dizzy spells, diaphoresis, Dyspnea on exertion, edema, irregular heart beat, left arm pain, lightheadedness, palpitations, PND, syncope, others Gastrointestinal: denies: abdomen distended, abdominal pain, blood streaked bowels, constipated, diarrhea, dysphagia, difficulty swallowing, hematemesis, melena, nausea, poor appetite, poor fluid intake, rectal bleeding, rectal pain, vomiting, others Genitourinary: denies: burning, dysuria, flank pain, frequency, hematuria, incontinence, penile discharge, penile sore, pain, testicle pain, testicle swelling, urgency, others Neurological: denies: dizziness, fainting, headache, left sided numbness, left sided weakness, numbness, paresthesia, pre-existing deficit, right sided numbness, right sided weakness, seizure, speech problems, tingling, tremors, weakness, others Musculoskeletal: reports: muscle pain (right leg pain); denies: back pain, gout, joint pain, joint swelling, muscle stiffness, neck pain, others Integumetry: denies: bruises, change in color, change in hair/nails, dryness, laceration, lesions, lumps, rash, wounds, others Hematologic/Lymphatic: denies: anemia, blood clots, easy bleeding, easy bruising, swollen glands, others Endocrine: denies: excessive hunger, excessive sweating, excessive thirst, excessive urination, flushing, intolerance to cold, intolerance to heat, unexplained weight gain, unexplained weight loss, others Psychiatric: denies: anxiety, bipolar disorder, depression, hopeless, panic disorder, schizophrenia, sleepless, suicidal, others All Other Systems: Reviewed and Negative Vital Signs Vital Signs Date Time Temp Pulse Resp B/P (MAP) Pulse Ox O2 Delivery O2 Flow Rate FiO2 09/02/24 19:30 Room Air* 0 21 09/02/24 18:24 59 09/02/24 15:00 16 106/67 (80) 98 09/02/24 07:30 97.1 97.1 Physical Exam GENERAL: Alert and oriented x 3. No acute distress. EYES: PERRL, EOMI. Anicteric. HENT: Moist mucous membranes. LUNGS: Clear to auscultation bilaterally. CARDIOVASCULAR: Regular rate and rhythm. ABDOMEN: Soft, nontender and nondistended. EXTREMITIES: No edema. NEUROLOGIC: No focal neurological deficits. SKIN: Warm, dry. Labs/Diagnostic Data Labs Test 09/02/24 17:00 09/02/24 05:08 Range/Units Prothrombin Time 10.7 9.3-11.8 sec Prothrombin Time INR 1.01 0.9-1.15 Activated Partial Thromboplast Time 91.2 *H 24.5-34.5 SEC White Blood Count 9.3 4.4-10.8 10^3/uL Red Blood Count 4.60 4.5-5.90 10^6/uL Hemoglobin 13.7 13.5-17.5 g/dL Hematocrit 40.1 L 41.0-53.0 % Mean Corpuscular Volume 87.1 80.0-100.0 fL Mean Corpuscular Hemoglobin 29.7 28.0-32.0 pg Mean Corpuscular Hemoglobin Concent 34.1 32.0-36.0 g/dL Red Cell Distribution Width 12.8 11.8-14.3 % Platelet Count 190 140-450 10^3/uL Mean Platelet Volume 8.6 6.9-10.8 fL Neutrophils (%) (Auto) 47.6 37.0-80.0 % Lymphocytes (%) (Auto) 34.2 10.0-50.0 % Monocytes (%) (Auto) 9.1 0.0-12.0 % Eosinophils (%) (Auto) 8.0 H 0.0-7.0 % Basophils (%) (Auto) 1.1 0.0-2.0 % Neutrophils # (Auto) 4.4 1.6-8.6 10 ^3/uL Lymphocytes # (Auto) 3.2 0.4-5.4 10 ^3/uL Monocytes # (Auto) 0.8 0-1.3 10 ^3/uL Eosinophils # (Auto) 0.7 0-0.8 10 ^3/uL Basophils # (Auto) 0.1 0-0.2 10 ^3/uL Nucleated Red Blood Cells 0.0 % Sodium Level 140 136-145 mmol/L Potassium Level 4.2 3.5-5.1 mmol/L Chloride Level 104 98-107 mmol/L Carbon Dioxide Level 27 20-31 mmol/L Anion Gap 9 5-15 Blood Urea Nitrogen 9 9-23 mg/dL Creatinine 0.79 0.700-1.30 mg/dL Glomerular Filtration Rate Calc 110 >90 mL/min BUN/Creatinine Ratio 11.4 10.0-20.0 Serum Glucose 101 74-106 mg/dL Calcium Level 10.0 8.7-10.4 mg/dL Total Bilirubin 0.9 0.2-1.0 mg/dL Aspartate Amino Transferase (AST) 33 <34 U/L Alanine Aminotransferase (ALT) 31 7-40 U/L Alkaline Phosphatase 60 46-116 U/L Total Protein 6.6 5.7-8.2 g/dL Albumin 4.2 3.2-4.8 g/dL Assessment DVT left lower extremity. Acute left lower extremity pain secondary to DVT. History of atrial fibrillation. Hypertension. Plan/Recommendation I agree with your ongoing assessment and care of plan. Telemetry reviewed. Morphine and [place] for pain management. Heparin drip per pharmacy. Metoprolol. GI prophylactics. Nitro SL. Additional plan as per the hospital course. A total of 45 minutes was spent reviewing the patient record, examining the patient, making a diagnostic and therapeutic plan, discussing this plan with medical personnel, following up on diagnostic studies and following the patient for clinical stability excluding any and all procedures. At least 50% of this time was spent in direct, [id number] contact. Plan discussed with: Patient RANDALL CLEMONS MD Sep 02, 2024 21:48
[2024-09-03] VITALS (7 sets, daily range): BP systolic 109–124; BP diastolic 76–85; PULSE 56–82; RESP 16–18; TEMP 97.6–99.1; O2SAT 97–100
[2024-09-03 01:48] LABS: INR 1.0 (0.9-1.15); Partial Thromboplastin Time 65.4 SEC (24.5-34.5); Prothrombin Time 10.6 sec (9.3-11.8)
[2024-09-03] MEDS: HYDROcodone-ACET 5/325MG TAB PO PRN (04:30)
[2024-09-03 08:07] LABS: Hematocrit 40.0 % (41.0-53.0); Hemoglobin 13.8 g/dL (13.5-17.5); Mean Corpuscular Hemoglobin 29.9 pg (28.0-32.0); Mean Corpuscular Volume 86.8 fL (80.0-100.0); Nucleated Red Blood Cells % 0.1 %
[2024-09-03 08:25] LABS: Alanine Aminotransferase 28 U/L (7-40); Albumin 4.1 g/dL (3.2-4.8); Alkaline Phosphatase 58 U/L (46-116); Anion Gap 9 (5-15); BUN/Creatinine Ratio 15.4 (10.0-20.0); Blood Urea Nitrogen 12 mg/dL (9-23); Calcium 9.6 mg/dL (8.7-10.4); Carbon Dioxide 26 mmol/L (20-31); Chloride 106 mmol/L (98-107); Potassium 4.1 mmol/L (3.5-5.1); Sodium 141 mmol/L (136-145); Total Protein 6.3 g/dL (5.7-8.2)
[2024-09-03 08:26] LABS: Bilirubin, Total 1.0 mg/dL (0.2-1.0)
[2024-09-03 08:27] LABS: Glucose 107 mg/dL (74-106)
[2024-09-03 08:28] LABS: INR 1.0 (0.9-1.15); Prothrombin Time 10.6 sec (9.3-11.8)
[2024-09-03 08:43] LABS: Partial Thromboplastin Time 82.5 SEC (24.5-34.5)
--- NOTE | 2024-09-03 09:27 | CONS ---
Pharmacy Clinical Information: DECREASE HEPARIN DRIP RATE TO 1200 UNITS/HR PER APTT OF 82.5 (SUPRATHERAPEUTIC) NEXT APTT DRAW SCHEDULED FOR 1530 PER RX PROTOCOL BEBETO THOMAS PHARMACIST Sep 03, 2024 09:27
[2024-09-03] MEDS: HEPARIN DRIP/D5W 100UNITS/ML 250 ML IV SCH ×2 (09:49→22:08)
--- NOTE | 2024-09-03 13:27 | DVHPN2 ---
Reviewed: Care Plan, H&P, Labs, Medications, Previous Orders, Radiology Changes from previous H/P or p: No Changes Eyes: No Pain, No Vision change, No Conjunctivae inflammation, No Eyelid inflammation, No Other, No Redness ENT: No Ear pain, No Ear discharge, No Nose pain, No Nose discharge, No Nose congestion, No Mouth pain, No Mouth swelling, No Throat pain, No Throat swelling, No Other Cardiovascular: No Chest Pain, No Palpitations, No Orthopnea, No Paroxysmal Noc. Dyspnea, No Edema, No Lt Headedness, No Other Respiratory: No Cough, No Dry, No Shortness of breath, No SOB with excertion, No Wheezing, No Hemoptysis, No Pleuritic Pain, No Sputum, No Other Gastrointestinal: No Nausea, No Vomiting, No Abdominal Pain, No Diarrhea, No Constipation, No Melena, No Hematochezia, No Other Genitourinary: No Dysuria, No Frequency, No Incontinence, No Hematuria, No Retention, No Other Musculoskeletal: other (Muscle pain); No neck pain, No shoulder pain, No arm pain, No back pain, No hand pain; leg pain (Left leg); No foot pain Skin: No Rash, No Lesions, No Jaundice, No Bruising, No Other Objective Vitals Vital Signs Date Time Temp Pulse Resp B/P (MAP) Pulse Ox O2 Delivery O2 Flow Rate FiO2 09/03/24 09:09 72 108/68 09/03/24 08:00 Room Air* 0 21 09/03/24 05:00 97.8 18 98 97.8 Intake/Output Intake and Output 09/03/24 07:00 Intake Total 860 ml Output Total 720 ml Balance 140 ml Intake Oral 200 ml IV Total 660 ml Output Urine Total 720 ml # Voids 2 # Bowel Movements 1 Medications Current Medications Medications Dose Ordered Sig/Meli Route Start Time Stop Time Status Last Admin Dose Admin Metoprolol Tartrate 25 mg BID PO 09/02/24 10:00 09/03/24 09:09 25 MG Pantoprazole Sodium 40 mg DAILY IV 09/02/24 10:00 09/03/24 09:08 40 MG Sodium Chloride 1,000 ml @ 60 mls/hr [id number] IV 09/02/24 05:00 09/02/24 06:28 60 MLS/HR Acetaminophen/ Hydrocodone Bitart 1 tab Q4HP PRN PO 09/02/24 05:00 09/03/24 04:30 1 TAB Ondansetron HCl 4 mg Q4HP PRN IV 09/02/24 05:00 Docusate Sodium 100 mg BIDPRN PRN PO 09/02/24 05:00 Acetaminophen 650 mg Q6HP PRN PO 09/02/24 05:00 Nitroglycerin 0.4 mg Q5MINP PRN SL 09/02/24 05:00 Morphine Sulfate 2 mg Q30M PRN IV 09/02/24 05:00 Heparin Sodium/ Dextrose 250 ml @ 12 mls/hr [id number] IV 09/03/24 09:30 09/03/24 09:49 12 MLS/HR Laboratory Results Laboratory Tests 09/03/24 07:41 Chemistry Test 09/03/24 07:41 Albumin 4.1 g/dL (3.2-4.8) Calcium Level 9.6 mg/dL (8.7-10.4) Total Protein 6.3 g/dL (5.7-8.2) Coagulation Test 09/02/24 17:00 09/03/24 01:14 09/03/24 07:41 Prothrombin Time 10.7 sec (9.3-11.8) 10.6 sec (9.3-11.8) 10.6 sec (9.3-11.8) Prothrombin Time INR 1.01 (0.9-1.15) 1.00 (0.9-1.15) 1.00 (0.9-1.15) Activated Partial Thromboplast Time 91.2 SEC (24.5-34.5) *H 65.4 SEC (24.5-34.5) H 82.5 SEC (24.5-34.5) *H LFT Test 09/03/24 07:41 Alanine Aminotransferase (ALT) 28 U/L (7-40) Alkaline Phosphatase 58 U/L (46-116) Aspartate Amino Transferase (AST) 23 U/L (<34) Total Bilirubin 1.0 mg/dL (0.2-1.0) Labs and/or images reviewed: Labs reviewed by me, Image(s) reviewed by me Assessment/Plan Assessment/Plan DVT left lower extremity: Heparin per protocol cardiology consult for Dr. Kenyon appreciated Acute left lower extremity pain secondary to DVT History of atrial fibrillation Hypertension: Metoprolol Plan discussed with: Patient Date of Service: Sep 03, 2024 Billing Provider: BEAN LARA MD Common Visit Codes: [id number] INP/OBS CARE(HIGH) BEAN LARA MD Sep 03, 2024 13:27
[2024-09-03 16:43] LABS: INR 1.0 (0.9-1.15); Partial Thromboplastin Time 62.6 SEC (24.5-34.5); Prothrombin Time 10.6 sec (9.3-11.8)
[2024-09-03 21:35] LABS: INR 1.0 (0.9-1.15); Partial Thromboplastin Time 47.8 SEC (24.5-34.5); Prothrombin Time 10.6 sec (9.3-11.8)
--- NOTE | 2024-09-03 22:06 | DVHPN2 ---
Progress Note - Dictate Date Seen: Sep 03, 2024 Medical Necessity Reason Pt with a Central, PICC or Fol: No Subjective Patient was seen and evaluated in follow up. Patient is c/o LLE pain. Patient on heparin drip. BS in the low 100s. Telemetry reviewed. vital signs Vital Sign Date Time Temp Pulse Resp B/P (MAP) Pulse Ox O2 Delivery O2 Flow Rate FiO2 09/03/24 21:01 67 118/77 09/03/24 21:00 99.1 17 98 99.1 09/03/24 20:00 Room Air* 0 21 Total Intake and Output 09/02/24 09/02/24 09/03/24 15:00 23:00 07:00 Intake Total 480 ml 180 ml 200 ml Output Total 720 ml Balance -240 ml 180 ml 200 ml medications Current Medications Medications Dose Ordered Sig/Meli Route Start Time Stop Time Status Last Admin Dose Admin Metoprolol Tartrate 25 mg BID PO 09/02/24 10:00 09/03/24 21:01 25 MG Pantoprazole Sodium 40 mg DAILY IV 09/02/24 10:00 09/03/24 09:08 40 MG Sodium Chloride 1,000 ml @ 60 mls/hr [id number] IV 09/02/24 05:00 09/03/24 14:30 60 MLS/HR Acetaminophen/ Hydrocodone Bitart 1 tab Q4HP PRN PO 09/02/24 05:00 09/03/24 21:02 1 TAB Ondansetron HCl 4 mg Q4HP PRN IV 09/02/24 05:00 Docusate Sodium 100 mg BIDPRN PRN PO 09/02/24 05:00 Acetaminophen 650 mg Q6HP PRN PO 09/02/24 05:00 Nitroglycerin 0.4 mg Q5MINP PRN SL 09/02/24 05:00 Morphine Sulfate 2 mg Q30M PRN IV 09/02/24 05:00 Heparin Sodium/ Dextrose 250 ml @ 12 mls/hr [id number] IV 09/03/24 09:30 09/03/24 09:49 12 MLS/HR objective GENERAL: Alert and oriented x 3. No acute distress. EYES: PERRL, EOMI. Anicteric. HENT: Moist mucous membranes. LUNGS: Clear to auscultation bilaterally. CARDIOVASCULAR: Regular rate and rhythm. ABDOMEN: Soft, nontender and nondistended. EXTREMITIES: No edema. NEUROLOGIC: No focal neurological deficits. SKIN: Warm, dry. laboratory and microbiology Laboratory Tests 09/03/24 07:41 Test 09/03/24 07:41 Range/Units Serum Glucose 107 H 74-106 mg/dL Problem List DVT left lower extremity. Acute left lower extremity pain secondary to DVT. History of atrial fibrillation. Hypertension. Assessment/Plan Continued all current supportive medical care. Morphine and [place] for pain management. Heparin drip per pharmacy. Metoprolol. GI prophylactics. Nitro SL. Additional plan as per the hospital course. Plan discussed with: Patient RANDALL CLEMONS MD Sep 03, 2024 22:06
[2024-09-04] VITALS (8 sets, daily range): BP systolic 109–127; BP diastolic 59–80; PULSE 45–70; RESP 14–17; TEMP 98.2–98.9; O2SAT 96–100
[2024-09-04 06:41] LABS: Hematocrit 38.3 % (41.0-53.0); Hemoglobin 13.6 g/dL (13.5-17.5); Mean Corpuscular Hemoglobin 30.4 pg (28.0-32.0); Mean Corpuscular Volume 85.7 fL (80.0-100.0); Nucleated Red Blood Cells % 0.1 %
--- NOTE | 2024-09-04 09:19 | CONS ---
Pharmacy Clinical Information: HEPARIN DRIP CURRENTLY HELD PER APTT > 139 RESUME DRIP AT RATE 1100 UNITS/HR NEXT APTT DRAW SCHEDULED FOR 1500 PER RX PROTOCOL BEBETO THOMAS PHARMACIST Sep 04, 2024 09:19
[2024-09-04] MEDS: HEPARIN DRIP/D5W 100UNITS/ML 250 ML IV SCH (09:23)
--- NOTE | 2024-09-04 11:22 | DVHPN2 ---
Reviewed: Care Plan, H&P, Labs, Medications, Previous Orders, Radiology Changes from previous H/P or p: No Changes Eyes: No Pain, No Vision change, No Conjunctivae inflammation, No Eyelid inflammation, No Other, No Redness ENT: No Ear pain, No Ear discharge, No Nose pain, No Nose discharge, No Nose congestion, No Mouth pain, No Mouth swelling, No Throat pain, No Throat swelling, No Other Cardiovascular: No Chest Pain, No Palpitations, No Orthopnea, No Paroxysmal Noc. Dyspnea, No Edema, No Lt Headedness, No Other Respiratory: No Cough, No Dry, No Shortness of breath, No SOB with excertion, No Wheezing, No Hemoptysis, No Pleuritic Pain, No Sputum, No Other Gastrointestinal: No Nausea, No Vomiting, No Abdominal Pain, No Diarrhea, No Constipation, No Melena, No Hematochezia, No Other Genitourinary: No Dysuria, No Frequency, No Incontinence, No Hematuria, No Retention, No Other Musculoskeletal: other (Muscle pain); No neck pain, No shoulder pain, No arm pain, No back pain, No hand pain; leg pain (Left leg); No foot pain Skin: No Rash, No Lesions, No Jaundice, No Bruising, No Other Objective Vitals Vital Signs Date Time Temp Pulse Resp B/P (MAP) Pulse Ox O2 Delivery O2 Flow Rate FiO2 09/04/24 09:25 66 118/80 09/04/24 09:00 98.7 17 97 98.7 09/04/24 08:00 Room Air* 0 21 Intake/Output Intake and Output 09/04/24 07:00 Intake Total 3491.6 ml Balance 3491.6 ml Intake Oral 2575 ml IV Total 916.6 ml # Voids 7 # Bowel Movements 1 Medications Current Medications Medications Dose Ordered Sig/Meli Route Start Time Stop Time Status Last Admin Dose Admin Metoprolol Tartrate 25 mg BID PO 09/02/24 10:00 09/04/24 09:25 25 MG Pantoprazole Sodium 40 mg DAILY IV 09/02/24 10:00 09/04/24 09:24 40 MG Sodium Chloride 1,000 ml @ 60 mls/hr [id number] IV 09/02/24 05:00 09/04/24 07:00 60 MLS/HR Acetaminophen/ Hydrocodone Bitart 1 tab Q4HP PRN PO 09/02/24 05:00 09/03/24 21:02 1 TAB Ondansetron HCl 4 mg Q4HP PRN IV 09/02/24 05:00 Docusate Sodium 100 mg BIDPRN PRN PO 09/02/24 05:00 Acetaminophen 650 mg Q6HP PRN PO 09/02/24 05:00 Nitroglycerin 0.4 mg Q5MINP PRN SL 09/02/24 05:00 Morphine Sulfate 2 mg Q30M PRN IV 09/02/24 05:00 Heparin Sodium/ Dextrose 250 ml @ 11 mls/hr [id number] IV 09/04/24 09:15 09/04/24 09:23 11 MLS/HR Laboratory Results Laboratory Tests 09/03/24 07:41 09/04/24 06:19 Coagulation Test 09/03/24 15:18 09/03/24 20:55 09/04/24 06:19 Prothrombin Time 10.6 sec (9.3-11.8) 10.6 sec (9.3-11.8) Prothrombin Time INR 1.00 (0.9-1.15) 1.00 (0.9-1.15) Activated Partial Thromboplast Time 62.6 SEC (24.5-34.5) H 47.8 SEC (24.5-34.5) H > 139.0 SEC (24.5-34.5) *H Labs and/or images reviewed: Labs reviewed by me, Image(s) reviewed by me Assessment/Plan Assessment/Plan DVT left lower extremity: Heparin per protocol cardiology consult for Dr. Kenyon appreciated, will convert to Eliquis tomorrow morning Acute left lower extremity pain secondary to DVT History of atrial fibrillation on metoprolol Hypertension: Metoprolol Plan discussed with: Patient Date of Service: Sep 04, 2024 Billing Provider: BEAN LARA MD Common Visit Codes: [id number] INP/OBS CARE(HIGH) BEAN LARA MD Sep 04, 2024 11:22
[2024-09-04] MEDS: ACETAMINOPHEN 325 MG TAB PO PRN (15:44)
[2024-09-04] MEDS: APIXABAN 5 MG TAB PO SCH (20:09)
--- NOTE | 2024-09-04 23:48 | DVHPN2 ---
Progress Note - Dictate Date Seen: Sep 04, 2024 Medical Necessity Reason Pt with a Central, PICC or Fol: No Subjective Patient was seen and evaluated in follow up. No overnight events. Patient remains with LLE pain. CBC and chemistry are unremarkable. Patient on heparin drip for DVT. Telemetry reviewed. vital signs Vital Sign Date Time Temp Pulse Resp B/P (MAP) Pulse Ox O2 Delivery O2 Flow Rate FiO2 09/04/24 21:09 80 124/82 09/04/24 21:00 98.2 14 100 98.2 09/04/24 20:00 Room Air* 0 21 Total Intake and Output 09/03/24 09/03/24 09/04/24 15:00 23:00 07:00 Intake Total 548.2 ml 1343.4 ml 1600 ml Balance 548.2 ml 1343.4 ml 1600 ml medications Current Medications Medications Dose Ordered Sig/Meli Route Start Time Stop Time Status Last Admin Dose Admin Metoprolol Tartrate 25 mg BID PO 09/02/24 10:00 09/04/24 20:09 25 MG Pantoprazole Sodium 40 mg DAILY IV 09/02/24 10:00 09/04/24 09:24 40 MG Sodium Chloride 1,000 ml @ 60 mls/hr [id number] IV 09/02/24 05:00 09/04/24 23:12 60 MLS/HR Acetaminophen/ Hydrocodone Bitart 1 tab Q4HP PRN PO 09/02/24 05:00 09/03/24 21:02 1 TAB Ondansetron HCl 4 mg Q4HP PRN IV 09/02/24 05:00 Docusate Sodium 100 mg BIDPRN PRN PO 09/02/24 05:00 Acetaminophen 650 mg Q6HP PRN PO 09/02/24 05:00 09/04/24 15:44 650 MG Nitroglycerin 0.4 mg Q5MINP PRN SL 09/02/24 05:00 Morphine Sulfate 2 mg Q30M PRN IV 09/02/24 05:00 Patient Own Medication 10 mg BID PO 09/04/24 13:00 09/10/24 13:00 Cancel Apixaban 10 mg BID PO 09/04/24 22:00 09/04/24 20:09 10 MG objective GENERAL: Alert and oriented x 3. No acute distress. EYES: PERRL, EOMI. Anicteric. HENT: Moist mucous membranes. LUNGS: Clear to auscultation bilaterally. CARDIOVASCULAR: Regular rate and rhythm. ABDOMEN: Soft, nontender and nondistended. EXTREMITIES: No edema. NEUROLOGIC: No focal neurological deficits. SKIN: Warm, dry. laboratory and microbiology Laboratory Tests 09/04/24 06:19 09/03/24 07:41 Test 09/03/24 07:41 Range/Units Serum Glucose 107 H 74-106 mg/dL Problem List DVT left lower extremity. Acute left lower extremity pain secondary to DVT. History of atrial fibrillation. Hypertension. Assessment/Plan Continued all current supportive medical care. Morphine and [place] for pain management. Heparin drip per pharmacy. Metoprolol. GI prophylactics. Nitro SL. Additional plan as per the hospital course. Plan discussed with: Patient RANDALL CLEMONS MD Sep 04, 2024 23:48
[2024-09-05 01:00] VITALS: BP 108/74; PULSE 60; RESP 14; TEMP 98.7; O2SAT 95
[2024-09-05 05:00] VITALS: BP 106/51; PULSE 60; RESP 78; TEMP 98; O2SAT 97
[2024-09-05 08:00] VITALS: PULSE 85
[2024-09-05 09:00] VITALS: BP 108/81; PULSE 70; RESP 16; TEMP 97.6; O2SAT 96
--- NOTE | 2024-09-05 11:52 | DVHPN2 ---
Reviewed: Care Plan, H&P, Labs, Medications, Previous Orders, Radiology Changes from previous H/P or p: No Changes Eyes: No Pain, No Vision change, No Conjunctivae inflammation, No Eyelid inflammation, No Other, No Redness ENT: No Ear pain, No Ear discharge, No Nose pain, No Nose discharge, No Nose congestion, No Mouth pain, No Mouth swelling, No Throat pain, No Throat swelling, No Other Cardiovascular: No Chest Pain, No Palpitations, No Orthopnea, No Paroxysmal Noc. Dyspnea, No Edema, No Lt Headedness, No Other Respiratory: No Cough, No Dry, No Shortness of breath, No SOB with excertion, No Wheezing, No Hemoptysis, No Pleuritic Pain, No Sputum, No Other Gastrointestinal: No Nausea, No Vomiting, No Abdominal Pain, No Diarrhea, No Constipation, No Melena, No Hematochezia, No Other Genitourinary: No Dysuria, No Frequency, No Incontinence, No Hematuria, No Retention, No Other Musculoskeletal: other (Muscle pain); No neck pain, No shoulder pain, No arm pain, No back pain, No hand pain; leg pain (Left leg); No foot pain Skin: No Rash, No Lesions, No Jaundice, No Bruising, No Other Objective Vitals Vital Signs Date Time Temp Pulse Resp B/P (MAP) Pulse Ox O2 Delivery O2 Flow Rate FiO2 09/05/24 09:00 97.6 70 16 108/81 (90) 96 97.6 09/05/24 08:00 Room Air* 0 21 Intake/Output Intake and Output 09/05/24 07:00 Intake Total 2659 ml Balance 2659 ml Intake Oral 1850 ml IV Total 809 ml # Voids 7 # Bowel Movements 2 Medications Current Medications Medications Dose Ordered Sig/Meli Route Start Time Stop Time Status Last Admin Dose Admin Metoprolol Tartrate 25 mg BID PO 09/02/24 10:00 09/05/24 08:57 25 MG Pantoprazole Sodium 40 mg DAILY IV 09/02/24 10:00 09/05/24 08:57 40 MG Sodium Chloride 1,000 ml @ 60 mls/hr [id number] IV 09/02/24 05:00 09/04/24 23:12 60 MLS/HR Acetaminophen/ Hydrocodone Bitart 1 tab Q4HP PRN PO 09/02/24 05:00 09/03/24 21:02 1 TAB Ondansetron HCl 4 mg Q4HP PRN IV 09/02/24 05:00 Docusate Sodium 100 mg BIDPRN PRN PO 09/02/24 05:00 Acetaminophen 650 mg Q6HP PRN PO 09/02/24 05:00 09/04/24 15:44 650 MG Nitroglycerin 0.4 mg Q5MINP PRN SL 09/02/24 05:00 Morphine Sulfate 2 mg Q30M PRN IV 09/02/24 05:00 Patient Own Medication 10 mg BID PO 09/04/24 13:00 09/10/24 13:00 Cancel Apixaban 10 mg BID PO 09/04/24 22:00 09/05/24 08:57 10 MG Laboratory Results Laboratory Tests 09/03/24 07:41 09/04/24 06:19 Labs and/or images reviewed: Labs reviewed by me, Image(s) reviewed by me Assessment/Plan Assessment/Plan DVT left lower extremity: Heparin per protocol cardiology consult for Dr. Kenyon appreciated, on Eliquis Acute left lower extremity pain secondary to DVT History of atrial fibrillation on metoprolol Hypertension: Metoprolol Plan discussed with: Patient Date of Service: Sep 05, 2024 Billing Provider: BEAN LARA MD Common Visit Codes: [id number] INP/OBS CARE(HIGH) BEAN LARA MD Sep 05, 2024 11:52
[2024-09-05 12:34] VITALS: BP 108/69; PULSE 62; RESP 16; TEMP 98.7; O2SAT 98
[2024-09-05] MEDS ORDERED: APIX5TAB PO (13:27)
--- NOTE | 2024-09-05 13:31 | DVHDS2 ---
Discharge Summary Date of Admission Sep 02, 2024 at 04:48 Date of Discharge: Sep 05, 2024 Admitting Diagnosis Shortness of breath Wounds: None Labs/Diagnostic Data: Laboratory Results Test 09/04/24 06:19 09/03/24 20:55 09/03/24 07:41 White Blood Count 7.4 10^3/uL (4.4-10.8) Red Blood Count 4.47 10^6/uL (4.5-5.90) Hemoglobin 13.6 g/dL (13.5-17.5) Hematocrit 38.3 % (41.0-53.0) Mean Corpuscular Volume 85.7 fL (80.0-100.0) Mean Corpuscular Hemoglobin 30.4 pg (28.0-32.0) Mean Corpuscular Hemoglobin Concent 35.4 g/dL (32.0-36.0) Red Cell Distribution Width 12.6 % (11.8-14.3) Platelet Count 202 10^3/uL (140-450) Mean Platelet Volume 8.2 fL (6.9-10.8) Neutrophils (%) (Auto) 47.9 % (37.0-80.0) Lymphocytes (%) (Auto) 35.0 % (10.0-50.0) Monocytes (%) (Auto) 8.1 % (0.0-12.0) Eosinophils (%) (Auto) 8.0 % (0.0-7.0) Basophils (%) (Auto) 1.0 % (0.0-2.0) Neutrophils # (Auto) 3.5 10 ^3/uL (1.6-8.6) Lymphocytes # (Auto) 2.6 10 ^3/uL (0.4-5.4) Monocytes # (Auto) 0.6 10 ^3/uL (0-1.3) Eosinophils # (Auto) 0.6 10 ^3/uL (0-0.8) Basophils # (Auto) 0.1 10 ^3/uL (0-0.2) Nucleated Red Blood Cells 0.1 % Activated Partial Thromboplast Time > 139.0 SEC (24.5-34.5) Prothrombin Time 10.6 sec (9.3-11.8) Prothrombin Time INR 1.00 (0.9-1.15) Sodium Level 141 mmol/L (136-145) Potassium Level 4.1 mmol/L (3.5-5.1) Chloride Level 106 mmol/L (98-107) Carbon Dioxide Level 26 mmol/L (20-31) Anion Gap 9 (5-15) Blood Urea Nitrogen 12 mg/dL (9-23) Creatinine 0.78 mg/dL (0.700-1.30) Glomerular Filtration Rate Calc 111 mL/min (>90) BUN/Creatinine Ratio 15.4 (10.0-20.0) Serum Glucose 107 mg/dL (74-106) Calcium Level 9.6 mg/dL (8.7-10.4) Total Bilirubin 1.0 mg/dL (0.2-1.0) Aspartate Amino Transferase (AST) 23 U/L (<34) Alanine Aminotransferase (ALT) 28 U/L (7-40) Alkaline Phosphatase 58 U/L (46-116) Total Protein 6.3 g/dL (5.7-8.2) Albumin 4.1 g/dL (3.2-4.8) Other Laboratory Tests 09/04/24 06:19 09/03/24 07:41 Brief Hx & Hospital Course: 48-year-old male with a history of hypertension and AFib on metoprolol at home came in for shortness of breaths found to have pulmonary embolism by CT chest angiogram with contrast. Seen by Cardiology. Placed on heparin transition to Eliquis. At the time of discharge patient is afebrile stable vital signs on room air . discharged home on Eliquis. He will follow up with the primary Dr in one week Consults/Reason for consult Cardiology Operations or Procedures CT chest angiogram with contrast Condition at Discharge: Fair Final Diagnosis/Problems List Pulmonary embolism AFib Hypertension Discharge Disposition: Home Discharge Instruct/Medications Diet: Cardiac 2g Na,low cholest Activity: Light activity Follow Up/Referral: Follow up with the primary Dr in one week Medications: Eliquis Transmitted to [facility] pharmacy Scheduled Apixaban Base (Eliquis), 5 MG PO BID Apixaban Base (Eliquis), 10 MG PO BID Metoprolol Succinate (Toprol Xl), 1 TAB PO DAILY, (Reported) Pantoprazole Sodium Sesquihydr (Protonix), 40 MG PO DAILY, (Reported) Miscellaneous Medications Nitroglycerin (Nitrostat), 0.4 MG SL, (Reported) 35 (Time taken for discharge summary 35 minutes) Discharge Statement: "Patient was advised to return to the ER or call 911 if any headaches, dizziness, shortness of breath, chest pain, abdominal pain, bleeding, fevers, or worsening of medical condition. Patient was counseled about treatment plan, medications, possible side effects, patientverbalized understanding. All questions were answered to the best of my ability. This discharge took greater then 30 minutes in planning, reviewing documentation, counseling the patient, and discussing with other team members." ASSESSMENT ASSESSMENT Hospital Course Uneventful Assessment Pulmonary embolism AFib Hypertension Date of Service: Sep 05, 2024 Billing Provider: BEAN LARA MD Common Visit Codes: 93611-PVF/OBS DISCH DAY >30min BEAN LARA MD Sep 05, 2024 13:31
--- NOTE | 2024-09-05 22:15 | DVHPN2 ---
Progress Note - Dictate Date Seen: Sep 05, 2024 Medical Necessity Reason Pt with a Central, PICC or Fol: No Subjective Patient was seen and evaluated in follow up. Patient has no new complaints at this time. Patient denies any cardiac symptoms. Patient is cardiac stable for discharge. Telemetry reviewed. vital signs Vital Sign Date Time Temp Pulse Resp B/P (MAP) Pulse Ox O2 Delivery O2 Flow Rate FiO2 09/05/24 12:34 98.7 62 16 108/69 (82) 98 98.7 09/05/24 08:00 Room Air* 0 21 Total Intake and Output 09/04/24 09/04/24 09/05/24 15:00 23:00 07:00 Intake Total 47 ml 2112 ml 500 ml Balance 47 ml 2112 ml 500 ml medications Current Medications Medications Dose Ordered Sig/Meli Route Start Time Stop Time Status Last Admin Dose Admin Patient Own Medication 10 mg BID PO 09/04/24 13:00 09/10/24 13:00 Cancel objective GENERAL: Alert and oriented x 3. No acute distress. EYES: PERRL, EOMI. Anicteric. HENT: Moist mucous membranes. LUNGS: Clear to auscultation bilaterally. CARDIOVASCULAR: Regular rate and rhythm. ABDOMEN: Soft, nontender and nondistended. EXTREMITIES: No edema. NEUROLOGIC: No focal neurological deficits. SKIN: Warm, dry. laboratory and microbiology Laboratory Tests 09/04/24 06:19 09/03/24 07:41 Test 09/03/24 07:41 Range/Units Serum Glucose 107 H 74-106 mg/dL Problem List DVT left lower extremity. Acute left lower extremity pain secondary to DVT. History of atrial fibrillation. Hypertension. Assessment/Plan Continued all current supportive medical care. Eliquis. Morphine and Joseph for pain management. Metoprolol. GI prophylactics. Nitro SL. Additional plan as per the hospital course. Plan discussed with: Patient RANDALL CLEMONS MD Sep 05, 2024 16:11
== END 2024-09-05 15:25 | disposition home or self-care (01) | DRG 299 ==
LOC: ER 00:37 → OVERFLOW 04:48 → TELE-WESTW 21:55
PROVIDERS: ADMIT Family Medicine; ATTEND Family Medicine
DX: I82.432 Acute embolism and thrombosis of left popliteal vein (principal); I26.99 Other pulmonary embolism without acute cor pulmonale; I10 Essential (primary) hypertension; I48.91 Unspecified atrial fibrillation; I82.442 Acute embolism and thrombosis of left tibial vein; F32.A Depression, unspecified; Z88.0 Allergy status to penicillin; Z79.899 Other long term (current) drug therapy
CPT/HCPCS: 36415; 80053; 85025; 85610; 85730; 93971; 96374; G0378; J2470